=== PATIENT | female | born 2000 | race Caucasian/White ===

== ENCOUNTER 2022-11-24 20:00 | Emergency (ER) | payer OTHER, SELFPAY ==
--- NOTE | 2022-11-24 07:38 | ECG_ITS ---
Test Reason : PSSIBLE OD Blood Pressure : / mmHG Vent. Rate : 087 BPM Atrial Rate : 087 BPM P-R Int : 120 ms QRS Dur : 074 ms QT Int : 332 ms P-R-T Axes : -04 042 049 degrees QTc Int : 399 ms Normal sinus rhythm Normal ECG No previous ECGs available Referred By: Maci Victoria Electronically Signed By:RADHA METCALF MD
[2022-11-24 20:04] VITALS: BP 136/86; PULSE 87; RESP 11; O2SAT 100; BMI 25.7
[2022-11-24 20:10] VITALS: BP 136/86; PULSE 84; RESP 14; O2SAT 100
--- NOTE | 2022-11-24 20:10 | ED_ITS ---
HPI - Altered Mental Status General Chief Complaint: Altered Mental Status Stated Complaint: Fall/Head inj Time Seen by Provider: 11/24/22 20:09 Source: patient and family Mode of arrival: ambulatory History of Present Illness HPI narrative: 22-year-old female who was at a today was noted to pass out and has no underlying past medical history. Family brought her in their car due to concerns about her being unresponsive. Related Data Allergies Allergy/AdvReac Type Severity Reaction Status Date / Time shellfish derived Allergy Unknown RASH Unverified 03/04/20 18:12 [SHELLFISH DERIVED] SEAFOOD Allergy Severe RASH Uncoded 03/04/20 18:12 Review of Systems Review of Systems: Pertinent positives and negatives as stated in HPI PMFSH Past Medical History Source: nursing notes reviewed Social History Social History Alcohol intake: current Alcohol intake frequency: holidays/special occasions only Smoked in Last 30 Days: No Use of substances other than those prescribed or required for medical reasons: No Advance Directives: No Advance Directives Information Provided: Yes Physical Exam ED Vital Signs: Vital Signs - 24 hr 11/24/22 20:04 11/24/22 20:10 11/24/22 20:47 Pulse Rate 87 84 84 Respiratory Rate 11 L 14 17 Blood Pressure 136/86 136/86 127/81 Pulse Oximetry 100 100 100 Oxygen Delivery Method Room Air Nasal Cannula Room Air Oxygen Flow Rate 1 11/24/22 21:56 11/24/22 21:56 11/24/22 21:56 Pulse Rate 85 83 82 Respiratory Rate Blood Pressure 112/75 111/68 124/71 Pulse Oximetry Oxygen Delivery Method Oxygen Flow Rate 11/24/22 22:00 Pulse Rate 105 H Respiratory Rate 17 Blood Pressure 124/71 Pulse Oximetry 98 Oxygen Delivery Method Room Air Oxygen Flow Rate BMI result Body Mass Index 25.7 VITAL SIGNS: Reviewed. GENERAL: Well developed, well nourished, in no acute distress. HEAD: Normocephalic/atraumatic EYES: PERRLA, EOMI EARS: Ext canals without abnormality NOSE: Nares patent bilateral OROPHARYNX: no oral lesions noted, posterior pharynx clear NECK: Supple, no adenopathy LUNGS: Normal breath sounds. No adventitious sounds or accessory muscle use. SpO2<98> CARDIOVASCULAR: Regular rate and rhythm without noted murmurs ABDOMEN: Soft, non-tender, non-distended with bowel sounds. MUSCULOSKELETAL: No tenderness, deformities, or effusions noted on gross inspection. EXTREMITIES: No cyanosis, clubbing or edema. SKIN: Inspection of the skin reveals no rashes NEUROLOGIC: GCS-10 Medications Administered Discontinued Medications Generic Name Dose Route Start Last Admin Trade Name Freq PRN Reason Stop Dose Admin Sodium Chloride 1,000 mls @ 999 mls/hr 11/24/22 21:30 11/24/22 22:37 Ns IV 11/24/22 22:30 Infused .Q1H1M JORGE Infusion Medical Decision Making Medical Decision Making [facility] Narrative: 22-year-old female with history and clinical presentation after initial intervention with painful stimuli patient awakened with eyes open but was not speaking to anyone. I reviewed all investigations as well as results of orthostatics, toxicology my interpretation is this patient likely experienced a vasovagal syncopal episode. There are no neurologic deficits, the urinalysis appears consistent with patient's current menstrual state. Patient is otherwise discharged home in stable condition. Differential Diagnosis Please see the discussion above Lab Data Please see the discussion above 11/24/22 20:14 11/24/22 20:14 Labs: Lab Results 11/24/22 11/24/22 11/24/22 Range/Units 20:14 20:14 20:14 WBC 6.8 (4.8-10.8) X10*3/uL RBC 4.36 (4.20-5.50) X10*6/uL Hgb 12.5 (12.0-16.0) g/dl Hct 38.2 (37.0-47.0) % MCV 87.6 (80.0-98.0) fL MCH 28.7 (27.0-33.0) pg MCHC 32.7 (31.0-35.0) g/dl RDW 12.6 (11.0-16.0) % Plt Count 277 (160-400) X10*3/uL MPV 9.7 (9.4-12.3) fL Immature Gran % (Auto) 0.1 (0.0-0.4) % Neut % (Auto) 52.3 (45-73) % Lymph % (Auto) 39.6 (20-40) % [place] % (Auto) 5.7 (2-11) % Eos % (Auto) 1.9 (0-4) % Baso % (Auto) 0.4 (0-2) % Lymph # (Auto) 2.7 (1.2-4.9) X10*3/uL [place] # (Auto) 0.4 (0.1-1.2) X10*3/uL Eos # (Auto) 0.1 (0.0-0.4) X10*3/uL Baso # (Auto) 0.0 (0.0-0.2) X10*3/uL Abs Immat Gran (auto) 0.01 (0.00-0.03) X10*3/uL Absolute Neuts (auto) 3.6 (2.0-8.3) x10*3/uL Absolute Nucleated RBC 0.000 (0.0-0.012) X10*3/uL Nucleated RBC % (auto) 0.0 (0.0-0.2) /100WBC PT 11.8 (10.0-13.1) SEC INR 1.0 (0.9-1.1) Sodium 140 (135-145) mmol/L Potassium 4.0 (3.3-5.1) mmol/L Chloride 106 (96-108) mmol/L Carbon Dioxide 27 (22-29) mmol/L Anion Gap 11 L (12-20) BUN 8 L (9-16) mg/dL Creatinine 0.75 (0.5-1.4) mg/dL Estim Creat Clear Calc 119.8 Estimated GFR > 60 Random Glucose 81 (60-115) mg/dL Calcium 10.2 (8.4-10.2) mg/dL Total Bilirubin 0.3 (0.0-1.0) mg/dL AST 14 (5-31) U/L ALT 10 (0-31) U/L Alkaline Phosphatase 141 H (39-117) U/L Total Protein 7.1 (6.5-8.0) g/dL Albumin 4.6 (3.5-5.0) g/dL Urine Color Urine Appearance Urine pH (5.0-9.0) Ur Specific [place] (1.005-1.025) Urine Protein (Neg-Trace) mg/dL Urine Glucose (UA) (Negative) mg/dL Urine Ketones (Negative) mg/dL Urine Blood (Negative) Urine Nitrite (Negative) Ur Leukocyte Esterase (Negative) Urine RBC (0-2) /HPF Urine WBC (0-5) /HPF Ur Squamous Epith Cells (0-2) /HPF Urine Bacteria (None Seen) Hyaline Casts (0-2) /LPF Urine Opiates Screen (Not Detect) Urine Fentanyl Screen (Not Detect) Ur Barbiturates Screen (Not Detect) Ur Phencyclidine Scrn (Not Detect) Ur Amphetamines Screen (Not Detect) U Benzodiazepines Scrn (Not Detect) Urine Cocaine Screen (Not Detect) U Marijuana (THC) Screen (Not Detect) Ethyl Alcohol < 10 mg/dL 11/24/22 11/24/22 Range/Units 22:47 22:47 WBC (4.8-10.8) X10*3/uL RBC (4.20-5.50) X10*6/uL Hgb (12.0-16.0) g/dl Hct (37.0-47.0) % MCV (80.0-98.0) fL MCH (27.0-33.0) pg MCHC (31.0-35.0) g/dl RDW (11.0-16.0) % Plt Count (160-400) X10*3/uL MPV (9.4-12.3) fL Immature Gran % (Auto) (0.0-0.4) % Neut % (Auto) (45-73) % Lymph % (Auto) (20-40) % [place] % (Auto) (2-11) % Eos % (Auto) (0-4) % Baso % (Auto) (0-2) % Lymph # (Auto) (1.2-4.9) X10*3/uL [place] # (Auto) (0.1-1.2) X10*3/uL Eos # (Auto) (0.0-0.4) X10*3/uL Baso # (Auto) (0.0-0.2) X10*3/uL Abs Immat Gran (auto) (0.00-0.03) X10*3/uL Absolute Neuts (auto) (2.0-8.3) x10*3/uL Absolute Nucleated RBC (0.0-0.012) X10*3/uL Nucleated RBC % (auto) (0.0-0.2) /100WBC PT (10.0-13.1) SEC INR (0.9-1.1) Sodium (135-145) mmol/L Potassium (3.3-5.1) mmol/L Chloride (96-108) mmol/L Carbon Dioxide (22-29) mmol/L Anion Gap (12-20) BUN (9-16) mg/dL Creatinine (0.5-1.4) mg/dL Estim Creat Clear Calc Estimated GFR Random Glucose (60-115) mg/dL Calcium (8.4-10.2) mg/dL Total Bilirubin (0.0-1.0) mg/dL AST (5-31) U/L ALT (0-31) U/L Alkaline Phosphatase (39-117) U/L Total Protein (6.5-8.0) g/dL Albumin (3.5-5.0) g/dL Urine Color [place] A Urine Appearance Clear Urine pH 6.5 (5.0-9.0) Ur Specific [place] 1.015 (1.005-1.025) Urine Protein 30 (1+) H (Neg-Trace) mg/dL Urine Glucose (UA) Negative (Negative) mg/dL Urine Ketones Negative (Negative) mg/dL Urine Blood Large (3+) H (Negative) Urine Nitrite Negative (Negative) Ur Leukocyte Esterase Small (1+) H (Negative) Urine RBC 6-10 H (0-2) /HPF Urine WBC 11-20 H (0-5) /HPF Ur Squamous Epith Cells 11-20 (0-2) /HPF Urine Bacteria 1+ (None Seen) Hyaline Casts 0-2 (0-2) /LPF Urine Opiates Screen Not Detected (Not Detect) Urine Fentanyl Screen Not Detected (Not Detect) Ur Barbiturates Screen Not Detected (Not Detect) Ur Phencyclidine Scrn Not Detected (Not Detect) Ur Amphetamines Screen Not Detected (Not Detect) U Benzodiazepines Scrn Not Detected (Not Detect) Urine Cocaine Screen Not Detected (Not Detect) U Marijuana (THC) Screen Not Detected (Not Detect) Ethyl Alcohol mg/dL Independent Interpretation I performed an independent interpretation of an: EKG Interpretation: Normal sinus rhythm, HR-87, no STEMI, MS/QRS/QTC is within normal limits. External Record Review External record reviewed: Prior outpatient labs Discharge Plan Discharge Clinical Impression: Syncope, vasovagal Patient Disposition: Home, Self-Care Instructions: Syncope (ED) Additional Instructions: 1. Continue to drink plenty of fluids. 2. Follow-up with your primary care provider Sunday. Return to the ER for any worsening symptoms.
[2022-11-24 20:18] LABS: MANUAL DIFF FLAG NO
[2022-11-24 20:20] LABS: Basophils Percent Auto 0.4 % (0-2); Eosinophils Absolute Auto 0.1 X10*3/uL (0.0-0.4); Eosinophils Percent Auto 1.9 % (0-4); Hematocrit 38.2 % (37.0-47.0); Hemoglobin 12.5 g/dl (12.0-16.0); Imm Gran Abs Auto 0.01 X10*3/uL (0.00-0.03); Imm Gran Pct Auto 0.1 % (0.0-0.4); Lymphocytes Absolute Auto 2.7 X10*3/uL (1.2-4.9); Lymphocytes Percent Auto 39.6 % (20-40); Mean Corpuscular HGB Conc 32.7 g/dl (31.0-35.0); Mean Corpuscular Hemoglobin 28.7 pg (27.0-33.0); Mean Corpuscular Volume 87.6 fL (80.0-98.0); Mean Platelet Volume 9.7 fL (9.4-12.3); Monocytes Absolute Auto 0.4 X10*3/uL (0.1-1.2); Monocytes Percent Auto 5.7 % (2-11); Neutrophils Absolute Auto 3.6 x10*3/uL (2.0-8.3); Neutrophils Percent Auto 52.3 % (45-73); Platelet Count 277 X10*3/uL (160-400); Red Blood Count 4.36 X10*6/uL (4.20-5.50); Red Cell Distribution Width 12.6 % (11.0-16.0); White Blood Count 6.8 X10*3/uL (4.8-10.8)
[2022-11-24 20:26] LABS: Prothrombin Time 11.8 SEC (10.0-13.1)
[2022-11-24 20:44] LABS: Alanine Aminotransferase 10 U/L (0-31); Albumin Level 4.6 g/dL (3.5-5.0); Alkaline Phosphatase 141 U/L (39-117); Anion Gap 11 (12-20); Aspartate Amino Transferase 14 U/L (5-31); Bilirubin Total 0.3 mg/dL (0.0-1.0); Blood Urea Nitrogen 8 mg/dL (9-16); Calcium 10.2 mg/dL (8.4-10.2); Carbon Dioxide 27 mmol/L (22-29); Chloride 106 mmol/L (96-108); Creatinine Clr Calc Pharmacy 119.8; Estimated Glomerular Filt Rate > 60; Ethanol < 10 mg/dL; Glucose Random 81 mg/dL (60-115); Sodium 140 mmol/L (135-145); Total Protein 7.1 g/dL (6.5-8.0)
[2022-11-24 20:47] VITALS: BP 127/81; PULSE 84; RESP 17; O2SAT 100
--- NOTE | 2022-11-24 20:57 | PC.NURSE ---
late entry: pt brought back from waiting room, unresponsive, respirations even and unlabored, 80s normal sinus on monitor. 20g IV placed in LAC, labs obtained, EKG obtained. pt has eye movement but still is not responding verbally. Pt does withdraw from pain. Family member at bedside at this time
[2022-11-24] MEDS: 0.9 % Sodium Chloride 1,000 ML 999 ML IV (21:36)
[2022-11-24 21:56] VITALS: BP 111/68; BP 112/75; BP 124/71; PULSE 82; PULSE 83; PULSE 85
[2022-11-24 22:00] VITALS: BP 124/71; PULSE 105; RESP 17; O2SAT 98
--- NOTE | 2022-11-24 22:37 | PC.NURSE ---
pt awake, alert and oriented x4. Pt reports she fell and does not remember anything past that. MD Victoria aware
[2022-11-24 23:04] LABS: Amphetamine Screen Urine Not Detected (Not Detect); Barbiturates, Urine Not Detected (Not Detect); Benzodiazepines Screen Urine Not Detected (Not Detect); Cannabinoid Screen Urine Not Detected (Not Detect); Cocaine Screen Urine Not Detected (Not Detect); Fentanyl, urine Not Detected (Not Detect); Opiate Screen Urine Not Detected (Not Detect); Phencyclidine Screen Urine Not Detected (Not Detect)
[2022-11-24 23:09] LABS: Appearance Urine Clear; Color Urine Orange; Glucose Urine UA Negative (Negative); Leukocyte Esterase Urine Small (1+) (Negative); Nitrite Urine Negative (Negative); PH 6.5 (5.0-9.0); Specific Gravity - Urine 1.015 (1.005-1.025); UMIC TRIGGER UACC YES; Urine Blood Large (3+) (Negative); Urine Ketones Negative (Negative); Urine Protein 30 (1+) mg/dL (Neg-Trace)
[2022-11-24 23:10] LABS: Bacteria Urine 1+ (None Seen); Hyaline Casts Urine 0-2 /LPF (0-2); UACC Culture Trigger YES
[2022-11-25 00:02] LABS: HCG Quantitative < 2 mIU/mL
== END 2022-11-25 00:25 | disposition home or self-care (01) ==
PROVIDERS: Emergency Provider Student in an Organized Health Care Education/Training Program
DX: R55 Syncope and collapse (principal); R51.9 Headache, unspecified; Z79.899 Other long term (current) drug therapy
CPT/HCPCS: 36415; 80053; 80307; 81001; 81003; 84702; 85025; 85610; 87086; 87147; 93005; 96360; 99284

== ENCOUNTER 2024-09-15 14:49 | Emergency (ER) | payer OTHER, SELFPAY ==
--- NOTE | ~2024-09-15 | US_ITS ---
CLINICAL HISTORY: ovarian torsions? US pelvis, transabdominal and transvaginal, with Duplex Comparison: None available Findings: Anteverted uterus measures 7.2 cm long axis. Portions of the myometrium and endometrium are obscured by side lobe artifacts. Imaged endometrium measures 1.2 cm thickness. Multiple prominent vessels in the pelvis are nonspecific including of the margins of the imaged uterus. No significant free fluid in the imaged pelvis at this time. Right ovary measures 3.6 x 1.8 x 1.7 cm. Left ovary measures 2.9 x 2.1 x 1.5 cm. Doppler: Doppler arterial waveform of the right ovary demonstrates peak systolic velocity of 12 cm/sec and resistive index of 0.5, accounting for aliasing artifacts. Doppler arterial waveform of the left ovary demonstrates peak systolic velocity of 8 cm/sec and resistive index of 0.6, accounting for aliasing artifacts. IMPRESSION: 1. No ultrasound findings of ovarian torsion. 2. Imaged endometrium measures 1.2 cm thickness. This document has been electronically signed by: James Smith MD on 09/15/2024 19:50:03
[2024-09-15 15:22] VITALS: BP 127/50; PULSE 92; RESP 18; TEMP 37.1; O2SAT 99; BMI 25.2
--- NOTE | 2024-09-15 15:32 | ED_ITS ---
HPI - General Adult General Chief complaint: Vaginal Bleeding Stated complaint: Feels Sick Time Seen by Provider: 09/15/24 20:15 Source: patient Limitations: no limitations History of Present Illness ED Provider: Elizabeth Latif PA-C HPI narrative: 24-year-old female presents with multiple complaints. Patient states she has been feeling ?unwell?, for the past 4 days. Associated body aches including abdominal cramping low back pain and swollen breasts. Patient states she has had irregular bleeding over the past 4 days, she is not due for her menstrual cycle. The bleeding has stopped. She states she had a positive test. In addition she has nasal congestion, chills but no known fevers. No cough, nausea vomiting diarrhea. Related Data Allergies Allergy/AdvReac Type Severity Reaction Status Date / Time shellfish derived Allergy Unknown RASH Verified 09/15/24 15:25 [SHELLFISH DERIVED] SEAFOOD Allergy Severe RASH Uncoded 03/04/20 18:12 Review of Systems 2 Review of Systems: Yes all other systems are reviewed and are negative Constitutional: Constitutional: Reports chills, Reports fatigue, Denies fever(s) and Reports malaise ENT: Reports nasal congestion Cardiovascular: Cardiovascular: Denies chest pain and Denies dyspnea Respiratory: Respiratory: Denies cough and Denies dyspnea Gastrointestinal: Gastrointestinal: Reports abdominal pain, Denies diarrhea, Denies nausea and Denies vomiting Endocrine: Endocrine: Reports fatigue PMFSH Past Medical History Attestation statement: The following information was validated with the patient. Social History Social History Alcohol intake: never Smoked in Last 30 Days: No Use of substances other than those prescribed or required for medical reasons: No Advance Directives: No Advance Directives Information Provided: Yes Patient : Yes Physical Exam ED Vital Signs: Vital Signs - 24 hr 09/15/24 15:22 09/15/24 20:10 09/15/24 21:26 Temperature 98.7 F 98.4 F 98.2 F Pulse Rate 92 89 83 Respiratory Rate 18 16 16 Blood Pressure 127/50 L 133/70 125/63 Pulse Oximetry 99 100 99 Oxygen Delivery Method Room Air Room Air Room Air 09/15/24 22:12 Temperature 98.2 F Pulse Rate 83 Respiratory Rate 16 Blood Pressure 125/63 Pulse Oximetry 99 Oxygen Delivery Method Room Air BMI result Body Mass Index 25.2 Const Other: Alert Orientation/consciousness: patient oriented x3 HENMT Other: Nasal congestion Resp Effort & Inspection: normal respiratory effort Cardio Other: Normal peripheral perfusion Skin Other: Warm dry no rash Neuro General: patient oriented x3, gait normal, no focal motor deficits and CN's II- XI intact bilaterally Psych Other: Cooperative Course Course Course Narrative: RMTawnya; 24-year-old female presents to ED for 4 days of not feeling well. Patient states 09/10/2026 she had positive test and then started having vaginal bleeding with mucous discharge. Patient states bleeding. Benign have lower abdominal back pain slight dizziness. Patient states breast for swollen. 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 Patient states she has been feeling ?unwell?, for the past 4 days. Associated body aches including abdominal cramping low back pain and swollen breasts. Patient states she has had irregular bleeding over the past 4 days, she is not due for her menstrual cycle. The bleeding has stopped. She states she had a positive test. In addition she has nasal congestion, chills but no known fevers. No cough, nausea vomiting diarrhea. No chronic issues History: Per patient I have considered the following differential diagnoses: Irregular vaginal bleeding, ectopic, viral syndrome, ovarian cyst Plan: Patient here with generalized malaise, with nasal congestion she likely has a virus. We will add a viral panel. Other screening labs including a test and transvaginal ultrasound were ordered from triage, she is not , the ultrasound was unremarkable, it sounds as if this was her menstrual cycle, but she states it could not have been. The patient does not want to wait for her viral panel results I will call her at home. She has barriers to transportation, her ride is here. I have independently reviewed the following tests: Labs: No leukocytosis, not anemic, no electrolyte abnormality, not , viral panel negative Transvaginal ultrasound:IMPRESSION: 1. No ultrasound findings of ovarian torsion. 2. Imaged endometrium measures 1.2 cm thickness. Lab Data 09/15/24 15:34 09/15/24 15:34 Labs: Lab Results 09/15/24 09/15/24 Range/Units 15:34 21:25 WBC 6.5 (4.8-10.8) X10*3/uL RBC 4.21 (4.20-5.50) X10*6/uL Hgb 12.2 (12.0-16.0) g/dl Hct 37.3 (37.0-47.0) % MCV 88.6 (80.0-98.0) fL MCH 29.0 (27.0-33.0) pg MCHC 32.7 (31.0-35.0) g/dl RDW 12.3 (11.0-16.0) % Plt Count 296 (160-400) X10*3/uL MPV 9.2 L (9.4-12.3) fL Immature Gran % (Auto) 0.2 (0.0-0.4) % Neut % (Auto) 65.9 (45-73) % Lymph % (Auto) 26.2 (20-40) % [place] % (Auto) 5.4 (2-11) % Eos % (Auto) 1.8 (0-4) % Baso % (Auto) 0.5 (0-2) % Lymph # (Auto) 1.7 (1.2-4.9) X10*3/uL [place] # (Auto) 0.4 (0.1-1.2) X10*3/uL Eos # (Auto) 0.1 (0.0-0.4) X10*3/uL Baso # (Auto) 0.0 (0.0-0.2) X10*3/uL Abs Immat Gran (auto) 0.01 (0.00-0.03) X10*3/uL Absolute Neuts (auto) 4.3 (2.0-8.3) x10*3/uL Absolute Nucleated RBC 0.000 (0.0-0.012) X10*3/uL Nucleated RBC % (auto) 0.0 (0.0-0.2) /100WBC PT 10.9 (10.9-12.4) SEC INR 0.9 (0.9-1.1) APTT 34.8 (26.0-36.8) SEC Sodium 141 (135-145) mmol/L Potassium 3.9 (3.3-5.1) mmol/L Chloride 108 (96-108) mmol/L Carbon Dioxide 26 (22-29) mmol/L Anion Gap 11 L (12-20) BUN 8 L (9-16) mg/dL Creatinine 0.65 (0.5-1.4) mg/dL Estim Creat Clear Calc 125.2 Estimated GFR > 60 Random Glucose 86 (60-115) mg/dL Calcium 10.0 (8.4-10.2) mg/dL Total Bilirubin 0.3 (0.0-1.0) mg/dL AST 20 (5-31) U/L ALT 15 (0-31) U/L Alkaline Phosphatase 110 (39-117) U/L Total Protein 7.2 (6.5-8.0) g/dL Albumin 4.4 (3.5-5.0) g/dL Beta HCG, Quant < 2 mIU/mL Influenza Type A (PCR) NEGATIVE (Negative) Influenza Type B (PCR) NEGATIVE (Negative) RSV RNA Qual (PCR) NEGATIVE (Negative) SARS-CoV-2 RNA (RT-PCR) NEGATIVE (Negative) Blood Type O Positive Discharge Plan Discharge Clinical Impression: Acute viral syndrome, Vaginal bleeding Patient Disposition: Home, Self-Care Instructions: Viral Syndrome (ED) Additional Instructions: All of your screening labs were normal, you were not . The transvaginal ultrasound was normal of the uterus and ovaries. You have a viral panel pending, I will call you with the results. See home care instructions. If you do have a fever you can alternate between [id number] Tylenol and ibuprofen, for fever body ache and headache. Follow up with your primary care provider as needed. You should also follow up with your senior hadoop developer in regard to your irregular bleeding, it sounds as if you had breakthrough bleeding outside of your menstrual cycle. Stand Alone Forms: Work/School Release Interventions: ED Discharge Assessment Last Done: 09/15/24 22:12 Discharge Date/Time: 09/15/24 22:12 Print Language: Turkmen
[2024-09-15 15:38] LABS: MANUAL DIFF FLAG NO
[2024-09-15 15:39] LABS: Basophils Percent Auto 0.5 % (0-2); Eosinophils Absolute Auto 0.1 X10*3/uL (0.0-0.4); Eosinophils Percent Auto 1.8 % (0-4); Hematocrit 37.3 % (37.0-47.0); Hemoglobin 12.2 g/dl (12.0-16.0); Imm Gran Abs Auto 0.01 X10*3/uL (0.00-0.03); Imm Gran Pct Auto 0.2 % (0.0-0.4); Lymphocytes Absolute Auto 1.7 X10*3/uL (1.2-4.9); Lymphocytes Percent Auto 26.2 % (20-40); Mean Corpuscular HGB Conc 32.7 g/dl (31.0-35.0); Mean Corpuscular Volume 88.6 fL (80.0-98.0); Mean Platelet Volume 9.2 fL (9.4-12.3); Monocytes Absolute Auto 0.4 X10*3/uL (0.1-1.2); Monocytes Percent Auto 5.4 % (2-11); Neutrophils Absolute Auto 4.3 x10*3/uL (2.0-8.3); Neutrophils Percent Auto 65.9 % (45-73); Platelet Count 296 X10*3/uL (160-400); Red Blood Count 4.21 X10*6/uL (4.20-5.50); Red Cell Distribution Width 12.3 % (11.0-16.0); White Blood Count 6.5 X10*3/uL (4.8-10.8)
[2024-09-15 15:44] LABS: INTERNATIONAL NORM RATIO 0.9 (0.9-1.1); Prothrombin Time 10.9 SEC (10.9-12.4)
[2024-09-15 15:47] LABS: Partial Thromboplastin Time 34.8 SEC (26.0-36.8)
[2024-09-15 16:06] LABS: Alanine Aminotransferase 15 U/L (0-31); Albumin Level 4.4 g/dL (3.5-5.0); Anion Gap 11 (12-20); Aspartate Amino Transferase 20 U/L (5-31); Bilirubin Total 0.3 mg/dL (0.0-1.0); Blood Urea Nitrogen 8 mg/dL (9-16); Carbon Dioxide 26 mmol/L (22-29); Chloride 108 mmol/L (96-108); Creatinine Clr Calc Pharmacy 125.2; Estimated Glomerular Filt Rate > 60; Glucose Random 86 mg/dL (60-115); HCG Quantitative < 2 mIU/mL; Potassium 3.9 mmol/L (3.3-5.1); Sodium 141 mmol/L (135-145); Total Protein 7.2 g/dL (6.5-8.0)
[2024-09-15 16:18] LABS: Alkaline Phosphatase 110 U/L (39-117)
[2024-09-15 20:10] VITALS: BP 133/70; PULSE 89; RESP 16; TEMP 36.9; O2SAT 100
[2024-09-15 21:26] VITALS: BP 125/63; PULSE 83; RESP 16; TEMP 36.8; O2SAT 99
[2024-09-15 22:12] VITALS: BP 125/63; PULSE 83; RESP 16; TEMP 36.8; O2SAT 99
[2024-09-15 22:12] LABS: Influenza A PCR NEGATIVE (Negative); Influenza B PCR NEGATIVE (Negative); Resp Syncy Virus RNA Qual PCR NEGATIVE (Negative); SARS COV2 PCR INHOUSE NEGATIVE (Negative)
== END 2024-09-15 22:12 | disposition home or self-care (01) ==
PROVIDERS: Physician Assistant; Physician Assistant Medical; Emergency Provider Emergency Medicine
DX: B34.9 Viral infection, unspecified (principal); N93.9 Abnormal uterine and vaginal bleeding, unspecified; R53.81 Other malaise; R68.83 Chills (without fever); R42 Dizziness and giddiness; R10.2 Pelvic and perineal pain; M54.50 Low back pain, unspecified; Z03.818 Encounter for observation for suspected exposure to other biological agents ruled out; Z32.02 Encounter for pregnancy test, result negative; Z79.899 Other long term (current) drug therapy; N89.8 Other specified noninflammatory disorders of vagina
CPT/HCPCS: 0241U; 36415; 76830; 76856; 80053; 84702; 85025; 85610; 85730; 86900; 86901; 93975; 99284

== ENCOUNTER → 2024-09-15 18:57 | Outpatient (BNV) | payer OTHER, SELFPAY | PROVIDERS: Visit Provider Radiology Neuroradiology | DX: N85.00 Endometrial hyperplasia, unspecified (principal) | CPT/HCPCS: 76830; 76856 ==

== ENCOUNTER 2024-10-15 16:32 | Emergency (ER) | payer MEDICAID, SELFPAY ==
[2024-10-15 16:34] VITALS: BP 119/71; PULSE 85; RESP 18; TEMP 36.4; O2SAT 98; BMI 26.2
--- NOTE | 2024-10-15 16:39 | ED_ITS ---
HPI - General Adult General Chief complaint: General Medical Stated complaint: diarrhea Time Seen by Provider: 10/15/24 17:48 Source: patient Mode of arrival: ambulatory Limitations: no limitations History of Present Illness ED Provider: Dr. Faith Grullon HPI narrative: Patient comes to the emergency room complaining of hematuria and dysuria. Patient complaining of diffuse abdominal discomfort, mild lower back pain. One episode of diarrhea. Patient denies fever or chills. Patient denies nausea or vomiting. Related Data Previous Rx's ?Medication ?Instructions ?Recorded levofloxacin 500 mg tablet 500 mg PO DAILY #9 tabs 10/15/24 phenazopyridine 100 mg tablet 100 mg PO TID PRN pain 6 doses #6 10/15/24 tabs Allergies Allergy/AdvReac Type Severity Reaction Status Date / Time shellfish derived Allergy Unknown RASH Verified 10/15/24 16:36 [SHELLFISH DERIVED] SEAFOOD Allergy Severe RASH Uncoded 03/04/20 18:12 Review of Systems 2 Review of Systems: Constitutional : No Weight loss, No Fever, No Chills, No Night Sweats, No Fatigue, No Malaise ENT/Mouth : No Hearing loss, No Ear Pain, No Nasal Congestion, No Sinus Pain, No Hoarseness, No sore throat, No Rhinorrhea, No Swallowing Difficulty Eyes: No Eye Pain, No Swelling, No Redness, No Foreign Body, No Discharge, No Vision Changes Cardiovascular : No Chest Pain, No SOB, No Dyspnea on Exertion, No Orthopnea, No Edema, No Palpitations Respiratory : No Cough, No Sputum, No Wheezing, No Smoke Exposure, No Dyspnea Gastrointestinal : No Nausea, No Vomiting, complaining of 1 episode of diarrhea, mild suprapubic discomfort Genitourinary : no irregular bleeding, complaining of hematuria dysuria and frequency, No Urinary Incontinence, No Urgency, No Flank Pain, No Urinary Flow Changes, No Hesitancy Musculoskeletal : No joint pain, No Myalgias, No Joint Swelling Skin : No Skin Lesions, No rash Neuro : No Weakness, No Numbness, No Paresthesias, No Loss of Consciousness, No Dizziness, No Headache Psych : No Anxiety/Panic, No Depression, No SI/HI/AH/VH, No Social Issues, Heme/Lymph: No Bruising, No Bleeding,No Lymphadenopathy Endocrine : No Polyuria, No Polydipsia, No Temperature Intolerance PMFSH Social History Social History Alcohol intake: never Advance Directives: No Advance Directives Information Provided: Yes Physical Exam ED Vital Signs: Vital Signs - 24 hr 10/15/24 16:34 Temperature 97.6 F Pulse Rate 85 Respiratory Rate 18 Blood Pressure 119/71 Pulse Oximetry 98 Oxygen Delivery Method Room Air BMI result Body Mass Index 26.2 Const Other: Appearance: Alert. Oriented X3. No acute distress. Eyes: Pupils equal, round and reactive to light. ENT: Pharynx normal. Neck: Normal inspection. Neck supple. No lymph nodes noted. No crepitus CVS: Normal heart rate and rhythm. Pulses normal. Normal S1 and S2 Respiratory: No respiratory distress. Breath sounds normal. No Wheezing. No rales Abdomen: Soft and nontender. No rigidity. No distention. Back: Mild bilateral pain to palpation, no significant CVA tenderness. Skin: Skin warm and dry. Normal skin color. Normal skin turgor. Extremities: No lower extremity edema. No Lacerations. No Rash Neuro: Oriented X 3. No motor deficit. No sensory deficit. Moving all extremities. No slurred speech. CN 2 through 12 grossly intact Psych: calm, cooperative, normal affect Course Course Course Narrative: This is a Rapid Medical Examination (RME) performed by Damien Potter PA-C in triage. Full HPI, ROS, assessment and treatment plan per primary provider in the Main ED. 10/15/24 1640 SAURAV Farias Hx: 24 yo female here for eval of urinary discomfort and blood on toilet paper after voiding. admits to assoc nausea, AGUILAR, and diffuse abd pain. reports diarrhea that began yesterday. no obvious hematuria. LMP 1 wk ago. currently sexually active. had unprotected intercourse with partner approx 1 week prior to symptoms. PE/vitals: well appearing. Plan: labs, UA, hcg, ct/ng Medications Administered Discontinued Medications Generic Name Dose Route Start Last Admin Trade Name Freq PRN Reason Stop Dose Admin Levofloxacin 500 mg 10/15/24 18:15 10/15/24 18:21 Levofloxacin 500 Mg Tablet PO 10/15/24 18:16 500 mg ONCE ONE Administration Phenazopyridine HCl 100 mg 10/15/24 18:12 10/15/24 18:18 Phenazopyridine Hcl 100 Mg Tablet PO 10/15/24 18:13 100 mg ONCE ONE Administration Medical Decision Making Medical Decision Making [facility] Narrative: My interpretation of labs: Normal hematology, no significant abnormality and chemistry, urinalysis positive for UTI, negative for . Patient's vitals are completely normal. Clinically, patient has pyelonephritis, sepsis is not suspected. Patient was given phenazopyridine and levofloxacin in the emergency room Differential Diagnosis Differential Diagnoses: The differential diagnosis associated with the presentation includes (UTI, pyelonephritis, miscarriage) Admission/Observation Consideration of admission/observation: Escalation of care including admission/observation considered (Given patient's labs and symptoms, observation was considered.) Lab Data [facility] Lab Attestation statement: I reviewed the patient's lab results. 10/15/24 17:00 10/15/24 17:00 Labs: Lab Results 10/15/24 10/15/24 Range/Units 17:00 17:01 WBC 10.0 (4.8-10.8) X10*3/uL RBC 4.15 L (4.20-5.50) X10*6/uL Hgb 12.3 (12.0-16.0) g/dl Hct 36.5 L (37.0-47.0) % MCV 88.0 (80.0-98.0) fL MCH 29.6 (27.0-33.0) pg MCHC 33.7 (31.0-35.0) g/dl RDW 13.0 (11.0-16.0) % Plt Count 276 (160-400) X10*3/uL MPV 9.4 (9.4-12.3) fL Immature Gran % (Auto) 0.4 (0.0-0.4) % Neut % (Auto) 75.5 H (45-73) % Lymph % (Auto) 18.6 L (20-40) % [place] % (Auto) 3.9 (2-11) % Eos % (Auto) 1.3 (0-4) % Baso % (Auto) 0.3 (0-2) % Lymph # (Auto) 1.9 (1.2-4.9) X10*3/uL [place] # (Auto) 0.4 (0.1-1.2) X10*3/uL Eos # (Auto) 0.1 (0.0-0.4) X10*3/uL Baso # (Auto) 0.0 (0.0-0.2) X10*3/uL Abs Immat Gran (auto) 0.04 H (0.00-0.03) X10*3/uL Absolute Neuts (auto) 7.6 (2.0-8.3) x10*3/uL Absolute Nucleated RBC 0.000 (0.0-0.012) X10*3/uL Nucleated RBC % (auto) 0.0 (0.0-0.2) /100WBC Sodium 140 (135-145) mmol/L Potassium 3.6 (3.3-5.1) mmol/L Chloride 105 (96-108) mmol/L Carbon Dioxide 27 (22-29) mmol/L Anion Gap 12 (12-20) BUN 9 (9-16) mg/dL Creatinine 0.72 (0.5-1.4) mg/dL Estim Creat Clear Calc 115.1 Estimated GFR > 60 Random Glucose 131 H (60-115) mg/dL Calcium 9.7 (8.4-10.2) mg/dL Magnesium 1.8 (1.6-2.6) mg/dL Total Bilirubin 0.4 (0.0-1.0) mg/dL AST 17 (5-31) U/L ALT 12 (0-31) U/L Alkaline Phosphatase 115 (39-117) U/L Total Protein 7.0 (6.5-8.0) g/dL Albumin 4.4 (3.5-5.0) g/dL Urine Color Yellow Urine Appearance Cloudy Urine pH 6.5 (5.0-9.0) Ur Specific [place] 1.020 (1.005-1.025) Urine Protein 30 (1+) H (Neg-Trace) mg/dL Urine Glucose (UA) Negative (Negative) mg/dL Urine Ketones Negative (Negative) mg/dL Urine Blood Moderate (2+) H (Negative) Urine Nitrite Negative (Negative) Ur Leukocyte Esterase Large (3+) H (Negative) Urine RBC >20 H (0-2) /HPF Urine WBC >50 H (0-5) /HPF Ur Squamous Epith Cells 3-5 (0-2) /HPF Urine Bacteria 1+ (None Seen) Hyaline Casts 0-2 (0-2) /LPF Urine Test NEGATIVE (NEGATIVE) Influenza Type A (PCR) NEGATIVE (Negative) Influenza Type B (PCR) NEGATIVE (Negative) RSV RNA Qual (PCR) NEGATIVE (Negative) SARS-CoV-2 RNA (RT-PCR) NEGATIVE (Negative) Discharge Plan Discharge Clinical Impression: Pyelonephritis Patient Disposition: Home, Self-Care Instructions: Kidney Infection (ED) Additional Instructions: Please follow-up with your primary care physician tomorrow. If you have any worsening or new symptoms, please return to the emergency room or call 911 Prescriptions: New levofloxacin 500 mg tablet 500 mg PO DAILY Qty: 9 0RF phenazopyridine 100 mg tablet 100 mg PO TID PRN (Reason: pain) Qty: 6 0RF Print Language: Pashto
[2024-10-15 17:06] LABS: MANUAL DIFF FLAG NO
[2024-10-15 17:08] LABS: Basophils Percent Auto 0.3 % (0-2); Eosinophils Absolute Auto 0.1 X10*3/uL (0.0-0.4); Eosinophils Percent Auto 1.3 % (0-4); Hematocrit 36.5 % (37.0-47.0); Hemoglobin 12.3 g/dl (12.0-16.0); Imm Gran Abs Auto 0.04 X10*3/uL (0.00-0.03); Imm Gran Pct Auto 0.4 % (0.0-0.4); Lymphocytes Absolute Auto 1.9 X10*3/uL (1.2-4.9); Lymphocytes Percent Auto 18.6 % (20-40); Mean Corpuscular HGB Conc 33.7 g/dl (31.0-35.0); Mean Corpuscular Hemoglobin 29.6 pg (27.0-33.0); Mean Platelet Volume 9.4 fL (9.4-12.3); Monocytes Absolute Auto 0.4 X10*3/uL (0.1-1.2); Monocytes Percent Auto 3.9 % (2-11); Neutrophils Absolute Auto 7.6 x10*3/uL (2.0-8.3); Neutrophils Percent Auto 75.5 % (45-73); Platelet Count 276 X10*3/uL (160-400); Red Blood Count 4.15 X10*6/uL (4.20-5.50)
[2024-10-15 17:10] LABS: Appearance Urine Cloudy; Color Urine Yellow; Glucose Urine UA Negative (Negative); Leukocyte Esterase Urine Large (3+) (Negative); Nitrite Urine Negative (Negative); PH 6.5 (5.0-9.0); UMIC TRIGGER UACC YES; Urine Blood Moderate (2+) (Negative); Urine Ketones Negative (Negative); Urine Protein 30 (1+) mg/dL (Neg-Trace)
[2024-10-15 17:11] LABS: UPreg QC Valid YES; Urine Pregnancy NEGATIVE (NEGATIVE)
[2024-10-15 17:21] LABS: Alanine Aminotransferase 12 U/L (0-31); Albumin Level 4.4 g/dL (3.5-5.0); Alkaline Phosphatase 115 U/L (39-117); Anion Gap 12 (12-20); Aspartate Amino Transferase 17 U/L (5-31); Bacteria Urine 1+ (None Seen); Bilirubin Total 0.4 mg/dL (0.0-1.0); Blood Urea Nitrogen 9 mg/dL (9-16); Calcium 9.7 mg/dL (8.4-10.2); Carbon Dioxide 27 mmol/L (22-29); Chloride 105 mmol/L (96-108); Creatinine Clr Calc Pharmacy 115.1; Estimated Glomerular Filt Rate > 60; Glucose Random 131 mg/dL (60-115); Hyaline Casts Urine 0-2 /LPF (0-2); Magnesium 1.8 mg/dL (1.6-2.6); Potassium 3.6 mmol/L (3.3-5.1); RBC Urine >20 /HPF (0-2); Sodium 140 mmol/L (135-145); UACC Culture Trigger YES; WBC Urine >50 /HPF (0-5)
[2024-10-15 17:48] LABS: Influenza A PCR NEGATIVE (Negative); Influenza B PCR NEGATIVE (Negative); Resp Syncy Virus RNA Qual PCR NEGATIVE (Negative); SARS COV2 PCR INHOUSE NEGATIVE (Negative)
[2024-10-15] MEDS: Phenazopyridine HCL 100 MG TABLET PO (18:18)
[2024-10-15] MEDS: levoFLOXacin 500 MG TABLET PO (18:21)
[2024-10-15 18:31] VITALS: BP 119/71; PULSE 85; RESP 18; TEMP 36.4; O2SAT 98
[2024-10-15 18:39] LABS: CT PCR NOT DETECTED (Not Detect.); NG PCR NOT DETECTED (Not Detect.)
== END 2024-10-15 18:34 | disposition home or self-care (01) ==
PROVIDERS: Physician Assistant Medical; Emergency Provider Emergency Medicine
DX: N12 Tubulo-interstitial nephritis, not specified as acute or chronic (principal); B96.20 Unspecified Escherichia coli [E. coli] as the cause of diseases classified elsewhere; R10.30 Lower abdominal pain, unspecified; Z03.818 Encounter for observation for suspected exposure to other biological agents ruled out
CPT/HCPCS: 0241U; 36415; 80053; 81001; 81025; 83735; 85025; 87086; 87088; 87186; 87491; 87591; 99283

== ENCOUNTER 2024-12-10 16:10 | Outpatient (REF) | payer MEDICAID, SELFPAY ==
--- OUTSIDE RECORDS SUMMARY | 2023-09-25 07:40 | XMS_ITS ---
Author Organization [email or web address] [facility] Address [address] [facility] [address] [place], [place] [phone] Care Team Providers Care Business Excellence Leader Name Role Phone Tamara Darby Primary Care Provider REASON FOR VISIT possible Encounters Encounter Location Date Provider Diagnosis [facility] [address] [facility] [address] [place], [place] [phone] 09/25/2023 Tamara Darby Plan Of Treatment No Information Progress Notes * Ciarra FAROOQ ADOB:1 06/30/1999 (24 yo F)Acc No.[id number]:09/25/2023 Progress Note Patient: [place] FINK jEdolores Cool Provider: MANJU Butler :2000 A ge:23 Y S ex:Female Date:09/25/2023 Address:[address] [place], [place] [id number] Subjective: * Chief Complaints: * 1 . Possible . * Medical History: Objective: * Vitals: Assessment: Plan: * Treatment: Care Plan: * Problems: * Images: Billing Information: * Visit Code: * Procedure Codes: Care Plan Details* * Electronic signature of Nolvia Darby NP on 12/10/2024 at 06:43 PM EDT Sign off status: Pending * Provider: MANJU Butler Date: 0 09/25/2023 Generated for Printi ng/Faxing/eTransmitting on: 0 12/10/2024 06:43 PM EDT
[2024-12-10 18:14] LABS: Appearance Urine Turbid; Color Urine Yellow; Glucose Urine UA Negative (Negative); Leukocyte Esterase Urine Negative (Negative); Nitrite Urine Negative (Negative); Specific Gravity - Urine 1.025 (1.005-1.025); Urine Blood Negative (Negative); Urine Ketones Trace mg/dL (Negative); Urine Protein Trace mg/dL (Neg-Trace)
[2024-12-10 18:29] LABS: Bacteria Urine 4+ (None Seen); Hyaline Casts Urine 0-2 /LPF (0-2); RBC Urine 0-2 /HPF (0-2); WBC Urine 0-5 /HPF (0-5)
[2024-12-10 18:38] LABS: HCG Quantitative < 2 mIU/mL
[2024-12-10 20:25] LABS: Bacterial Vaginosis PCR POSITIVE (Negative); Candida Group PCR DETECTED (Not Detect); Candida glab krusei PCR NOT DETECTED (Not Detect); Trichomonas vaginalis PCR NOT DETECTED (Not Detect)
[2024-12-10 21:54] LABS: CT PCR DETECTED (Not Detect.); NG PCR NOT DETECTED (Not Detect.)
[2024-12-11 07:59] LABS: HIV AB/AG Nonreactive (Nonreactive); HIV Num 1 0.05 S/CO (0.00-0.99); ~HepC Num1 0.17 S/CO (0.00-0.79); ~Hepatitis C Antibody Nonreactive (Nonreactive)
[2024-12-11 08:32] LABS: Syphilis Screen Nonreactive (Nonreactive)
== END 2024-12-10 16:11 | disposition home or self-care (01) ==
LOC: HO.HHCL 16:10
PROVIDERS: PCP Family Medicine; Visit Provider Family Medicine
DX: Z30.09 Encounter for other general counseling and advice on contraception (principal); N89.8 Other specified noninflammatory disorders of vagina; Z11.3 Encounter for screening for infections with a predominantly sexual mode of transmission
CPT/HCPCS: 36415; 81001; 81515; 84702; 86780; 86803; 87086; 87389; 87491; 87591

== ENCOUNTER 2025-01-13 11:18 | Outpatient (REF) | payer MEDICAID, SELFPAY ==
--- OUTSIDE RECORDS SUMMARY | 2023-09-25 07:40 | XMS_ITS ---
Author Organization [facility] Address [address] [facility] [address] [place], [place] [id number] Care Team Providers Care Window Cutter Name Role Phone Tamara Darby Primary Care Provider REASON FOR VISIT possible Encounters Encounter Location Date Provider Diagnosis [facility] [address] [facility] [address] [place], [place] [id number] 09/25/2023 Tamara Darby Plan Of Treatment No Information Progress Notes * Ciarra FAROOQ ADOB:1 06/30/1999 (24 yo F)Acc No.[id number]:09/25/2023 Progress Note Patient: [place] FINK Ejdolores Cool Provider: MANJU Butler :2000 A ge:23 Y S ex:Female Date:09/25/2023 Address:[address] [place], [place] [id number] Subjective: * Chief Complaints: * 1 . Possible . * Medical History: Objective: * Vitals: Assessment: Plan: * Treatment: Care Plan: * Problems: * Images: Billing Information: * Visit Code: * Procedure Codes: Care Plan Details* * Electronic signature of Nolvia Darby NP on 01/13/2025 at 12:31 PM EDT Sign off status: Pending * Provider: MANJU Butler Date: 09/25/2023 Generated for Printi ng/Faxing/eTransmitting on: 0 01/13/2025 12:31 PM EDT
--- OUTSIDE RECORDS SUMMARY | 2025-01-13 12:31 | XMS_ITS | Data Portability ---
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 Plan of Treatment Reminders Order Date Submit Date Provider Last Modified By Organization Details Last Modified Time Details Appointments None recorded. Lab urinalysis, dipstick 2023 024 [facility]13 [address] [address], [address] [place], [address], 4 14:36:45 test, urine 2023 024 [email or web address] [address] [address], [address] [place], [address], 4 14:36:44 SARS CoV 2 (COVID-19) Ag, QL, IA, upper respiratory specimen 2023 024 [email or web address] [address] [address] [address] [place], [address], 4 14:36:41 rapid flu (A+B) 2023 024 [email or web address] [address] [address], [address] [place], [address], 4 14:36:42 SARS CoV 2 (COVID-19) Ag, QL, IA, upper respiratory specimen 2023 024 [email or web address] [address] [address], [address] [place], [address], 4 13:37:18 rapid flu (A+B) 2023 024 [email or web address] [address] [address], [address] [place], [address], 4 12:54:14 SARS CoV 2 (COVID-19) Ag, QL, IA, upper respiratory specimen 2023 024 [email or web address] [address] [address], [address] [place], [address], 4 12:54:12 Referral None recorded. Procedures None recorded. Surgeries None recorded. Imaging None recorded. Medication Orders erythromyci n 5 mg/gram (0.5 %) eye ointment 2023 024 [facility]/Pharmacy #3508, [address] [place], [address], 4 19:45:43 Bromfed DM 2 mg-30 mg-10 mg/5 mL oral syrup 2023 024 [facility]/Pharmacy #3508, [address] [place], [address], 4 19:11:42 promethazin e-DM 6.25 mg-15 mg/5 mL oral syrup [address]/Pharmacy #3508, [address] [place], [address], 12:56:13 fluticasone propionate 50 mcg/actuati on nasal spray,suspe nsion 2023 024 [address], [address] [place], [address], 12:55:13 Polytrim 10,000 unit-1 mg/mL eye drops [address]/Pharmacy #3508, [address] [place], [address], 12:33:38 Patient TargetsNo targets recorded. Patient Instructions Encounter Date Encounter Id Patient Instructions Last Modified By Organization Details Last Modified Time 05/26/2023 [id number] Increase fluids Take Tylenol/Ibuprofen as needed to aches or fevers Follow up with your primary care provider in 3-4 days Return to [facility] in 3-4 days as needed You should go to the Emergency Department for any new or worsening symptoms Not available 05/26/2023 15:44:50 07/27/2023 [id number] - Increase fluid intake and obtain plenty of rest. - Discussed OTC cough medications for URI symptom and cough management. - Use saline nasal spray or neti-pot flushes once to twice a day to loosen mucus in sinuses. Use a cool mist humidifier in the room that you sleep to add moisture to the air, which should soothe the airways and help loosen any mucus that may be present. - Recommend recheck if fever develops or no improvement in 5-7 days. - if no resolution or improvement within 2 weeks recheck at [facility] or PCP - Advised to dial 911 or seek emergency medical attention immediately for any worsening symptoms. -All questions answered during discharge. [email or web address] Not available 07/27/2023 12:53:27 11/19/2023 [id number] Increase fluids May use salt water gargles Take Tylenol/Ibuprofen as needed to aches or fevers Follow up with your primary care provider in 3-4 days Return to [facility] in 3-4 days as needed You should go to the Emergency Department for any new or worsening symptoms Not available 11/19/2023 13:34:09 03/14/2024 [id number] Increase fluids May use salt water gargles Take Tylenol/Ibuprofen as needed to aches or fevers Follow up with your primary care provider in 3-4 days Return to [facility] in 3-4 days as needed You should go to the Emergency Department for any new or worsening symptoms Not available 03/14/2024 14:35:47 03/24/2024 [id number] Increase fluids Take Tylenol/Ibuprofen as needed to aches or fevers Follow up with your primary care provider in 3-4 days Return to [facility] in 3-4 days as needed You should go to the Emergency Department for any new or worsening symptoms Not available 03/24/2024 19:45:41 Reason for Referral None Reported. Results Created Date Observation Date Name Description Value Unit Range Abnormal Flag Note LastModifiedBy Organization Detail LastModifiedTime 07/27/19 24 07/27/2023 SARS CoV 2 (COVI D-19) Ag, QL, IA, upper respi rator y speci men Unknown Analyte negati ve Not Available [address] [address] [place], [address], 07/27/2023 12:45:44 07/27/19 24 07/27/2023 rapid flu (A+B) Unknown Analyte negati ve Not Available [address] [address] [place], [address], 07/27/2023 12:45:35 07/27/19 24 07/27/2023 rapid flu (A+B) Unknown Analyte negati ve Not Available [address] [address] [place], [address], 07/27/2023 12:45:35 11/19/19 24 11/19/2023 SARS CoV 2 (COVI D-19) Ag, QL, IA, upper respi rator y speci men Unknown Analyte negati ve Not Available [facility] [address] [place], [address], 11/19/2023 13:12:06 03/14/20 24 03/14/2024 pregn shine test, urine Unknown Analyte negati ve Not Available [address] [place], [place] [address]d [address] [place], [address], 03/14/2024 14:07:49 03/14/20 24 03/14/2024 rapid flu (A+B) Unknown Analyte negati ve Not Available [address] [place], [place] [address] [address] [place], [address], 03/14/2024 14:07:16 03/14/20 24 03/14/2024 rapid flu (A+B) Unknown Analyte negati ve Not Available [address] [place], [place] [address] [address] [place], [address], 03/14/2024 14:07:16 03/14/20 24 03/14/2024 SARS CoV 2 (COVI D-19) Ag, QL, IA, upper respi rator y speci men Unknown Analyte negati ve Not Available [address] [place], [place] [address] [address] [place], [address], 03/14/2024 14:06:55 03/14/20 24 03/14/2024 urina lysis , dipst ick Unknown Analyte Normal = light yellow Not Available [address] [place] [address] [facility] [place], [address], 03/14/2024 14:07:32 03/14/20 24 03/14/2024 urina lysis , dipst ick Unknown Analyte Normal = clear Not Available [facility] [address] [place], [address], 03/14/2024 14:07:32 03/14/20 24 03/14/2024 urina lysis , dipst ick Unknown Analyte Normal = negati ve Not Available [facility] [address] [place], [address], 03/14/2024 14:07:32 03/14/2003/14/2024 urina lysis , dipst ick Unknown Analyte Normal = Negati ve Not Available [facility], [address], 03/14/2024 14:07:32 03/14/20 24 03/14/2024 urina lysis , dipst ick Unknown Analyte Normal = Negati ve Not Available [facility], [address], 03/14/2024 14:07:32 03/14/20 24 03/14/2024 urina lysis , dipst ick Unknown Analyte Normal = 1.010, 1.015, 1.020 Not Available [facility], [address], 03/14/2024 14:07:32 03/14/20 24 03/14/2024 urina lysis , dipst ick Unknown Analyte Normal = Negati ve Not Available [facility], [address], 03/14/2024 14:07:32 03/14/20 24 03/14/2024 urina lysis , dipst ick Unknown Analyte Normal = 6.5, 7.0, 7.5, 8.0 Not Available [facility] [address] [place], [address], 03/14/2024 14:07:32 03/14/20 24 03/14/2024 urina lysis , dipst ick Unknown Analyte Normal = Negati ve Not Available [facility] [address] [place], [address], 03/14/2024 14:07:32 03/14/20 24 03/14/2024 urina lysis , dipst ick Unknown Analyte Normal = 0.2, 1.0 Not Available [facility] [address] [place], [address], 03/14/2024 14:07:32 03/14/20 24 03/14/2024 urina lysis , dipst ick Unknown Analyte Normal = Negati ve Not Available [facility] [address] [place], [address], 03/14/2024 14:07:32 03/14/20 24 03/14/2024 urina lysis , dipst ick Unknown Analyte Normal = Negati ve Not Available [facility], [address], 03/14/2024 14:07:32 03/14/20 24 03/14/2024 urina lysis , dipst ick Unknown Analyte Dark Yellow Not Available [facility], [address], 03/14/2024 14:07:32 03/14/20 24 03/14/2024 urina lysis , dipst ick Unknown Analyte Clear Not Available [address] [facility] [address] [place], [address], 03/14/2024 14:07:32 03/14/20 24 03/14/2024 urina lysis , dipst ick Unknown Analyte Negati ve Not Available [address] [facility] [address] [place], [address], 03/14/2024 14:07:32 03/14/20 24 03/14/2024 urina lysis , dipst ick Unknown Analyte Small Not Available [address] [place] [address], [address], 03/14/2024 14:07:32 03/14/20 24 03/14/2024 urina lysis , dipst ick Unknown Analyte >=160 mg/dL Not Available [address] [facility] [address] [place], [address], 03/14/2024 14:07:32 03/14/20 24 03/14/2024 urina lysis , dipst ick Unknown Analyte 1.030 Not Available [address] [place] [address], [address], 03/14/2024 14:07:32 03/14/20 24 03/14/2024 urina lysis , dipst ick Unknown Analyte Negati ve Not Available [address], [address], 03/14/2024 14:07:32 03/14/20 24 03/14/2024 urina lysis , dipst ick Unknown Analyte 5.5 Not Available [address] [place] [address] [address] [place], [address], 03/14/2024 14:07:32 03/14/20 24 03/14/2024 urina lysis , dipst ick Unknown Analyte Negati ve Not Available [address] [address] [place], [address], 03/14/2024 14:07:32 03/14/20 24 03/14/2024 urina lysis , dipst ick Unknown Analyte 1.0 E.U./d L Not Available [facility] [address] [place], [address], 03/14/2024 14:07:32 03/14/20 24 03/14/2024 urina lysis , dipst ick Unknown Analyte Negati ve Not Available [address] [place] [address] [address] [place], [address], 03/14/2024 14:07:32 03/14/20 24 03/14/2024 urina lysis , dipst ick Unknown Analyte Negati ve Not Available [address] [place] [address] [address] [place], [address], 03/14/2024 14:07:32 Result Notes None recorded. Problems No Known Problems Procedures Surgical History Date Name Laterality Status Provider Name and Address Organization Details Recorded Time OC-UDS Send Out Template NON DOT completed Lluvia MG - [facility] 09/04/2022 11:08:48 Imaging Results None recorded. Procedure Notes None recorded. Medical Equipment None Reported. Allergies No known drug allergies Medications Name Sig Start Date Stop Date Status Note LastModified by Organization Details LastModified Time fluconazole 100 mg tablet TAKE 1 TABLET ORAL ROUTE ONCE DAILY FOR 5 DAYS 11/18 completed Not Available Not Available Not Available methocarbam ol 500 mg tablet TAKE 1 TABLET FOUR TIMES DAILY NEEDED BY MOUTH FOR PAIN. 11/18 completed Not Available Not Available Not Available buspirone 5 mg tablet TAKE 1 TABLET BY MOUTH TWICE A DAY FOR 30 DAYS 01/27 completed Not Available Not Available Not Available Bromfed DM 2 mg-30 mg-10 mg/5 mL oral syrup Take 10 mL 3 times a day by oral route as needed. 03/24 completed Not Available Not Available Not Available promethazin e-DM 6.25 mg-15 mg/5 mL oral syrup TAKE 5 ML EVERY 8 HOURS BY ORAL ROUTE FOR 7 DAYS. 11/18 completed Not Available Not Available Not Available Delsym 12 hour 30 mg/5 mL oral suspension, extended release Take 5 mL twice a day by oral route for 10 days. 05/26 completed Not Available Not Available Not Available cetirizine 10 mg tablet CHEW 1 TABLET 1 TIME PER DAY FOR ALLERGY SYMPTOMS OR ITCHING 06/26 completed Not Available Not Available Not Available ibuprofen 800 mg tablet TAKE 1 TABLET BY MOUTH EVERY 8 HOURS NEEDED 05/26 completed Not Available Not Available Not Available promethazin e 12.5 mg tablet TAKE 1 TABLET ORAL ROUTE EVERY 8 HOURS NEEDED 11/18 completed Not Available Not Available Not Available phenazopyri dine 200 mg tablet 11/18 completed Not Available Not Available Not Available ondansetron HCl 4 mg tablet 1 TAB(S) ORALLY EVERY 8 HOURS 5 DAY(S) 01/27 completed Not Available Not Available Not Available prednisone 20 mg tablet TAKE 1 TABLET BY MOUTH ROUTE ONCE DAILY FOR 5 DAYS 11/18 completed Not Available Not Available Not Available penicillin V potassium 500 mg tablet 1 TAB(S) ORALLY EVERY 6 HOURS 10 DAY(S) 05/26 completed Not Available Not Available Not Available metronidazo le 500 mg tablet TAKE 1 TABLET ORAL ROUTE EVERY 8 HOURS FOR 10 DAYS 11/18 completed Not Available Not Available Not Available sulfamethox azole 800 mg-trimetho prim 160 mg tablet TAKE 1 TABLET BY MOUTH EVERY 12 HOURS FOR 10 DAYS 06/26 completed Not Available Not Available Not Available tramadol 50 mg tablet 11/18 completed Not Available Not Available Not Available amoxicillin 875 mg tablet TAKE 1 TABLET BY MOUTH EVERY 12 HOURS FOR 7 DAYS 06/26 completed Not Available Not Available Not Available IBU 600 mg tablet Take 1 tablet 3 times a day by oral route as needed for 10 days. 09/20 completed Not Available Not Available Not Available cephalexin 500 mg capsule TAKE 1 CAPSULE ORAL ROUTE EVERY 6 HOURS FOR 5 DAYS 11/18 completed Not Available Not Available Not Available erythromyci n 5 mg/gram (0.5 %) eye ointment APPLY 1 CM RIBBON INTO THE LOWER CONJUNCTI YULIET SAC(S) IN THE AFFECTED EYE(S) BY OPHTHALMI C ROUTE 3 TIMES PER DAY 2023 active Not Available Not Available Not Avai lable polymyxin B sulfate 10,000 unit-trimet hoprim 1 mg/mL eye drops INSTILL 1 DROP INTO AFFECTED EYE EVERY 6 HOURS 07/27 completed Not Available Not Available Not Available ibuprofen 400 mg tablet TAKE 1 TABLET ORAL ROUTE EVERY 6 HOURS NEEDED 11/18 completed Not Available Not Available Not Available docusate sodium 100 mg capsule TAKE 1 CAPSULE (100 MG TOTAL) BY MOUTH EVERY TWELVE (12) HOURS. 11/18 completed Not Available Not Available Not Available hydroxyzine HCl 25 mg tablet TAKE 1 TABLET BY MOUTH EVERY 6 HOURS NEEDED 01/27 completed Not Available Not Available Not Available diclofenac sodium 50 mg tablet,meliton yed release 05/26 completed Not Available Not Available Not Available ondansetron 4 mg disintegrat ing tablet TAKE 1 TABLET BY MOUTH EVERY 8 HOURS NEEDED FOR NAUSEA FOR UP TO 7 DAYS 11/18 completed Not Available Not Available Not Available fluticasone propionate 50 mcg/actuati on nasal spray,suspe nsion SPRAY 1 SPRAY BY INTRANASA L ROUTE TWICE A DAY FOR 30 DAYS 11/18 completed Not Available Not Available Not Available sertraline 50 mg tablet TAKE 1 TABLET BY MOUTH EVERY DAY FOR 30 DAYS 03/22 completed Not Available Not Available Not Available medroxyprog esterone 150 mg/mL intramuscul ar suspension TAKE DIRECTED INTRAMUSC ULARLY (90 DAY SUPPLY) 07/27 completed Not Available Not Available Not Available doxycycline hyclate 100 mg tablet TAKE 1 TABLET ORAL ROUTE EVERY 12 HOURS FOR 7 DAYS 11/18 completed Not Available Not Available Not Available naproxen 500 mg tablet TAKE 1 TABLET BY MOUTH IN THE MORNING AND IN THE EVENING WITH MEALS 11/18 completed Not Available Not Available Not Available azithromyci n 500 mg tablet TAKE 2 TABLETS BY MOUTH A SINGLE DOSE. 11/18 completed Not Available Not Available Not Available medroxyprog esterone 150 mg/mL intramuscul ar syringe 1 ML EVERY 3 MONTHS BY INTRAMUSC ULAR ROUTE . 01/27 completed Not Available Not Available Not Available escitalopra m 10 mg tablet TAKE 1 TABLET BY MOUTH EVERY DAY FOR 30 DAYS 01/27 completed Not Available Not Available Not Available nitrofurant oin monohydrate /macrocryst als 100 mg capsule TAKE 1 CAPSULE BY MOUTH TWICE A DAY FOR 10 DAYS 06/26 completed Not Available Not Available Not Available Mucinex 1,200 mg tablet, extended release Take 1 tablet twice a day by oral route for 7 days. 05/26 completed Not Available Not Available Not Available Gavilax 17 gram/dose oral powder DISSOLVE 17 GRAMS INTO WATER AND DRINK BY MOUTH EVERY DAY 11/18 completed Not Available Not Available Not Available BinaxNOW COVID-19 Ag Card kit TEST DIRECTED TODAY 06/26 completed Not Available Not Available Not Available Vitals Date Recorded Body height Body mass index (BMI) Body weight Oxygen saturation Oxygen saturation in Arterial blood by Pulse oximetry Heart rate Respiratory rate Body temperature Systolic And Diastolic Provider Name and Address Organization Details Last Updated DateTime 4 162.56 cm 25.4 kg/m2 53059.6 7 g 100 % 100 % 96 /min 16 /min 97.7 [degF] 125/75 mm[Hg] Romana [facility] 4 12:42:46 Date Recorded Body height Body mass index (BMI) Body weight Oxygen saturation Oxygen saturation in Arterial blood by Pulse oximetry Heart rate Respiratory rate Body temperature Systolic And Diastolic Provider Name and Address Organization Details Last Updated DateTime 4 162.56 cm 25.4 kg/m2 83606.6 7 g 98 % 98 % 85 /min 16 /min 98.6 [degF] 114/79 mm[Hg] Romana Bárbara PA - [facility] 4 13:11:16 Date Recorded Body height Provider Name an d Address Organization Details Last Updated DateTime 03/14/2024 162.56 cm Abril Samson PA - [facility] 03/14/2024 13:57:10 Date Recorded Body height Body mass index (BMI) Body weight Oxygen saturation Oxygen saturation in Arterial blood by Pulse oximetry Heart rate Respiratory rate Body temperature Systolic And Diastolic Provider Name and Address Organization Details Last Updated DateTime 4 162.56 cm 24.7 kg/m2 64294.3 g 99 % 99 % 88 /min 18 /min 99 [degF] 109/76 mm[Hg] Abril Samson PA - [facility] 4 19:19:39 Date Recorded Body height Body mass index (BMI) Body weight Oxygen saturation Oxygen saturation in Arterial blood by Pulse oximetry Pain severity - 0-10 verbal numeric rating [Score] - Reported Heart rate Respiratory rate Body temperature Systolic And Diastolic Provider Name and Address Organization Details Last Updated DateTime 3 162.56 cm 25.2 kg/m2 36459.0 8 g 98 % 98 % 0 112 /min 16 /min 98.2 [degF] 111/72 mm[Hg] KY DELONG PA - [facility] 3 15:24:22 Social History Question Answer Notes LastModified by [employer] ion Details LastModified Time Tobacco Smoking Status Never Smoker VIRI hernández PA - [facility] 06/26/2022 17:42:54 Have You Had A Flu Shot This Season? No [email or web address] Information not available 03/04/2023 If No, Would You Like A Flu Shot Today? No [email or web address] Information not available 03/04/2023 Have You Recently Traveled Abroad? No [email or web address] Information not available 06/26/2022 Are You Currently In School? No [email or web address] Information not available 03/04/2023 Sex: Female Functional Status Question Answer Note LastModified by [employer] ion Details LastModified Time Do you use any illicit or recreational drugs? No [email or web address] Information not available 06/26/2022 Do you or have you ever used any other forms of tobacco or nicotine? No [email or web address] Information not available 06/26/2022 What is your level of alcohol consumption? None [email or web address] Information not available 06/26/2022 Are you currently employed? No [email or web address] Information not available 08/15/2022 Mental Status None recorded. Family History Relationship Description Onset Age of this Age Resolved Age Notes LastModified by Organization Details LastModified Time Father No current problems or disability [email or web address] Not available 02/2023 17:42:46 Mother No current problems or disability Not available 02/2023 17:42:46 Unspecified Relation Diabetes mellitus [email or web address] Not available 2022 15:26:02 Unspecified Relation Hypertensive disorder [email or web address] Not available 2022 15:26:10 Unspecified Relation Cerebrovascu lar accident [email or web address] Not available 02/2023 15:26:52 Unspecified Relation Malignant neoplastic disease [email or web address] Not available 2022 15:27:01 Medical History No medical history recorded. Gynecological History Statement/Question Response Date of LMP 02/25/2024 Is there any chance of ? No LMP Definite Obstetrics History GPAL:G 0 P 0 0 0 0 Immunizations Vaccine Type Date Status Note Provider Nam e and Address Organization Details Recorded Time COVID-19, mRNA, LNP-S, PF, 100 mcg/0.5mL dose or 50 mcg/0.25mL dose 01/08/2021 completed SAURAV Pereira [facility] 01/30/2023 12:16:34 Tdap 04/06/2021 completed SAURAV Pereira [facility] 01/30/2023 12:16:34 Past Encounters Encounter ID Performer Location Encounter Start Date Encounter Closed Date Diagnosis/Indication Diagnosis SNOMED-CT Code Diagnosis ICD10 Code Diagnosis Note [id number] [address] [address] [facility] [place] [address] 06/04/2021 16:21:30 06/04/2021 18:24:42 [id number] [address] [address] [place] [address] 03/31/2022 10:08:13 03/31/2022 10:52:06 [id number] [address] [address] [place] [address] 09/19/2019 13:53:19 09/19/2019 15:28:17 [id number] [address] [address] [place] [address] [place] [address] 01/08/2021 12:04:06 01/08/2021 12:30:09 [id number] [address] [address] [place] [address] 06/29/2019 14:26:50 06/29/2019 15:55:28 [id number] [address] [address] [place] [address] [place] [address] 09/22/2021 13:58:36 09/22/2021 14:56:56 [id number] [address] [address] [place] [address] 05/31/2020 12:37:44 05/31/2020 15:59:51 [id number] [address] [address] [facility] [place] [address] 12/16/2021 13:32:59 12/16/2021 15:45:57 [id number] [address] [facility] [address] [address] [place] [address] 01/13/2022 16:01:28 01/13/2022 16:34:56 [id number] [address] [facility] [address] [address] [place] [address] 02/16/2020 12:18:05 02/16/2020 13:01:44 [id number] [address] [facility] [address] [address] [place] [address] 02/13/2022 11:49:53 02/13/2022 16:47:25 [id number] SAURAV MCKEON [address] [address] [place] [address] 06/26/2022 16:01:06 06/26/2022 18:21:52 Viral syndrome [id number] B34.9 [id number] SAURAV MCKEON [facility] [address] [place] [address] 08/15/2022 16:47:32 08/15/2022 17:30:43 Pain of left hand [id number] 62442 M79.642 Closed fra cture of proximal phalanx of ring finger of left hand 3799003583 [id number] S62.645A [id number] SAURAV MILNER [address] [address] [place] [address] 09/04/2022 10:47:21 09/04/2022 11:11:24 History and physical examination, occupation [id number] Z02.1 [id number] 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, 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 [facility] [address] [place] [address] 09/20/2022 11:45:04 09/20/2022 13:38:28 Pain in right thumb 1234007292 991497 M79.644 Subungual hematoma of right thumb 7562623885 [id number] S60.111A [id number] SAURAV [facility]rete [facility] [address] [place] [address] 01/27/2023 17:26:34 01/27/2023 18:55:47 Viral syndrome [id number] B34.9 [id number] Tequila Mcclain, 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 [address]_[facility] centerdelmiMotion Picture & Television Hospitalmon althSov[facility] [place] [address] [place] [address] 01/30/2023 11:50:27 01/30/2023 12:50:28 Nasal discharge [id number] J00 [id number] Tequila Mcclain, 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 [address]th[facility] [place] [address] [place] [address] 02/02/2023 11:52:17 02/02/2023 12:43:52 Asymptomatic SARS-CoV-2 [id number] U07.1 [id number] SAURAV Negrete [address] alth[facility] [place] [address] [place] [address] 02/26/2023 09:26:33 02/26/2023 10:49:23 Viral syndrome [id number] B34.9 [id number] SAURAV MILNER [address]_[facility] Campusommonwe alth[facility] [place] [address] [place] [address] 03/04/2023 14:08:38 03/04/2023 14:56:04 Sore throat [id number] J02.9 Nasal discharge [id number] J00 [id number] SAURAV MILNER [address]_[facility] althSov[facility] [place] [address] [place] [address] 03/22/2023 19:19:26 03/22/2023 19:47:53 Acute urinary tract infection [id number] N39.0 Candidiasis of vagina 72 531152 B37.31 Constipation 43446528 K5 9.00 [id number] SAURAV MILNER [address]_[facility] althSov[facility] [place] [address] [place] [address] 03/31/2023 12:39:23 03/31/2023 13:35:16 Viral upper respiratory tract infection [id number] J06.9 [id number] SAURAV Negrete 460_[facility] [address] [place] [address] 6 05/26/2023 15:11:02 05/26/2023 15:53:24 Acute conjunctivitis of bilateral eyes [id number] 83480 H10.33 [id number] STEPHANIE WEI, [place] [address]_[facility] [address] [place] [address] 07/27/2023 12:30:18 07/27/2023 12:58:10 Viral upper respiratory tract infection 923330168 J06.9 [id number] SAURAV Negrete [address]_[facility] [address] [place] [address] 11/19/2023 12:50:55 11/19/2023 13:38:30 Viral syndrome [id number] B34.9 [id number] SAURAV Negrete 46[address]_[facility] [address] [place] [address] 03/14/2024 13:53:24 03/14/2024 14:37:56 Viral syndrome 638841429 B34.9 Dysuria 26525914 R30.0 [id number] SAURAV Negrete [facility] [address] [facility] [place] [address] 03/24/2024 19:07:54 03/24/2024 19:49:37 Acute conjunctivitis of left eye [id number] 89621 H10.32 Health Concerns Section Related Observation LastModified by Organization Detai ls LastModified Time None Recorded Concern Status LastModified by Organization Details LastModified Time None Recorded Advance Directives Directive None Recorded Payers Insurance Date Sequence Insurance Name Policy Number Policy Han Covered Member ID Han Member ID Guarantor Name 03/24/2024 1 [facility] - [place]) VAMDN Ciarra Fink [id number] Ciarra Fink 09/04/2022 OC-ESCREEN [employer] Ro sue Fink OBGyn Episode No OBEpisode recorded.
--- OUTSIDE RECORDS SUMMARY | 2025-01-13 12:31 | XMS_ITS | Clinical Summary ---
Author Organization [facility] [employer] Address [address] [place] [address] [address] [place] [address] Care Team Providers Care Public Relations Associate Name Role Phone Anila Jones MD Primary Care Provider [phone] Allergies Active Allergy Reactions Criticality Noted Date Comments Shellfish Allergy 01/13/2025 rash Medications * This document contains information received from the source organization and may not represent a complete record from that organization. calcium carbonate (Tums) 500 MG chewable tabletIndicatio ns:Nausea and vomiting, unspecified vomiting type Chew 1 tablet (500 mg) if needed in the morning, at noon, in the evening, and at bedtime for indigestion or heartburn. 30 tablet 5 Active metroNIDAZOLE (Flagyl) 500 MG tablet Take 1 tablet (500 mg) by mouth 2 times daily for 7 days. 14 tablet 5 12/19/19 25 doxycycline (Vibra-Tabs) 100 MG tablet Take 1 tablet (100 mg) by mouth 2 times daily for 10 days. Take with a full glass of water and do not lie down for at least 30 minutes after. 20 tablet 5 12/22/19 25 Active Problems Problem Noted Date Diagnosed Date Chronic migraine without aura 01/13/2025 Moderate major depression 01/13/2025 Chlamydia 12/12/2024 Overview (12/12/2024): -treated with doxycycline 12/12/24, pt will recheck in 3 months Assessment & Plan (12/18/2024 2:16 PM EDT): Prescribed Doxycyline and Flagyl 12/11/24. -Recommended finishing doxycycline taking one pill twice a day. -Has follow-up for retesting. -ER precautions discussed. -Seek medical attention for worsening symptoms. History of abnormal cervical Pap smear Assessment & Plan (11/27/2024 1:53 PM EDT): Orders: POCT , urine manually resulted Encounters * This document contains information received from the source organization and may not represent a complete record from that organization. Date Type Department Care Team Description 01/13/2025 9:45 AM EDT Office Visit [address] [address] Anila Jones MD Dietary counseling; Exercise counseling 01/13/2025 Travel 01/09/2025 [place] [address] Whitney Cortez MA chart prep 01/06/2025 Travel 12/18/2024 2:00 PM EDT Office Visit [facility] [address] [address] Ngoc Aguilar MD Chlamydia (Primary Dx); Nausea and vomiting, unspecified vomiting type 12/18/2024 Travel 12/11/2024 Results Follow-Up [facility] [address] [address] Iraida Vidal RN Bacterial Vaginosis, Chlamydia/N. Gonorrhoeae RNA, TMA, Urogenitial, POCT urinalysis dipstick manually resulted, Additional followed-up results: 6 12/11/2024 [facility] [address] [address] Alaina Hansen FNP 12/11/[address] [address] Cory Dyson MD Results 12/10/2024 3:40 PM EDT [facility] [address] [address] Ngoc Aguilar MD Routine screening for STI (sexually transmitted infection) (Primary Dx); Vaginal itching; Family planning; Dysuria 12/10/2024 Travel 11/27/2024 1:40 PM EDT Office Visit [facility] [address] [place] [address] Ngoc Aguilar MD Left lower quadrant abdominal pain (Primary Dx); History of abnormal cervical Pap smear 11/27/2024 Travel 10/15/2024 Orders Only GENERIC EXTERNAL DATA DEPARTMENT Provider, Generic External Data from Last 3 Months Immunizations Immunization Administration Dates Next Due Tdap 04/06/2021 Family History Medical History Relation Name Comments Diabetes Maternal Grandmother Heart attack Maternal Grandmother Stroke Maternal Grandmother Relation Name Status Comments Father Maternal Grandmother Mother Social History Tobacco Use Types Packs/Day Years Used Date Smoking Tobacco: Never Smokeless Tobacco: Never Tobacco Cessation:Counseling Given: Not Answered Alcohol Use Standard Drinks/Week Comments Never 0 (1 standard drink = 0.6 oz pur e alcohol) Depression Answer Date Recorded Patient Health Questionnaire-9 Score 8 01/13/2025 Patient Health Questionnaire-9 Score 8 01/13/2025 Last PHQ-9: Questionnaire Data Not on file 0 01/13/2025 Housing Stability Answer Date Recorded What is your housing situation today? I do not have housing (Staying with others, in a hotel, in a usp, living outside on the street, on a beach, in a car, or in a park 01/13/[address] you li ve. Do you have problems with any of the following? None of the above 01/13/2025 Food Insecurity Answer Date Recorded Within the past 12 months, y ou worried that your food would run out before you got money to buy more: Never True 01/13/2025 Within the past 12 months,th e food you bought just didn't last and you didn't have enough money to get more: Never True Transportation Answer Date Recorded In the past 12 months, has l ack of transportation kept you from medical appts, meetings, work or from getting things needed for daily living? No 01/13/2025 Utilities Answer Date Recorded In the past 12 months, has t he electric, gas, oil or water company threatened to shut off services in your home? No 01/13/2025 Depression Answer Date Recorded Patient Health Questionnaire-2 Score 2 01/13/2025 Internet Access Answer Date Recorded Internet Access Q1 Yes 01/13/2025 Internet Access Q2 Not on file 01/13/2025 Comments No Sex and Gender Information Value Date Recorded Sex Assigned at Female 04/17/2022 10:21 AM EDT Legal Sex Female 10:21 AM EDT Gender Identity Female 11/27/2024 1:12 PM EDT Sexual Orientation Straight 04/17/2022 10 :21 AM EDT Last Filed Vital Signs Vital Sign Reading Time Taken Comments Blood Pressure 128/74 01/13/2025 10:05 AM EDT Pulse 94 01/13/2025 10:05 AM EDT Temperature 36.5 C (97.7 F) 01/13/2025 10:05 AM EDT Respiratory Rate 20 01/13/2025 10:05 AM EDT Oxygen Saturation 97% 01/13/2025 10:05 AM EDT Inhaled Oxygen Concentration - - Weight 67.2 kg (148 lb 3.2 oz) 01/13/2025 10:05 AM EDT Height 162.6 cm (5' 4 ) 01/13/2025 10:05 AM EDT Body Mass Index 25.44 01/13/2025 10:05 AM EDT Plan of Treatment Health Maintenance Due Date Last Done Comments Family Planning (PISQ) 2015 HPV Vaccines (1 - 3-dose series) 2015 Hepatitis B Vaccines (1 of 3 - 19+ 3-dose series) 2019 Pap Smear 2021 COVID-19 Vaccine (2 - 2023-2 5 season) 2024 01/08/2021 Influenza Vaccine (#1) 2025 Disability Screening 01/06/2026 01/06/2025 Alcohol/Substance Use Screening 01/13/2026 01/13/2025 Depression Screening 01/13/2026 01/13/2025, 01/13/2025 SDOH Screening 01/13/2026 01/13/2025 Tobacco Screening 01/13/2026 01/13/2025 DTaP/Tdap/Td Vaccines (2 - T d or Tdap) 04/06/2031 04/06/2021 Zoster Vaccines (1 of 2) 2050 RSV Patients and Patients Aged 60 years or older (1 - 1-dose 75+ series) 2075 HIV Screening Completed 12/10/2024 Hepatitis C Screening Completed 12/10/2024 HIB Vaccines Aged Out No longer eligi ble based on patient's age to complete this topic Hepatitis A Vaccines Aged Out No long er eligible based on patient's age to complete this topic IPV Vaccines Aged Out No longer eligi ble based on patient's age to complete this topic Meningococcal B Vaccine Aged Out No l onger eligible based on patient's age to complete this topic Meningococcal Vaccine Aged Out No ya renetta eligible based on patient's age to complete this topic Pneumococcal Vaccine: Pediatrics (0 to 5 Years) and At-Risk Patients (6 to 49) Years Aged Out No longer eligible b ased on patient's age to complete this topic RSV under 20 months Aged Out No longe r eligible based on patient's age to complete this topic Rotavirus Vaccines Aged Out No longer eligible based on patient's age to complete this topic Procedures Procedure Name Priority Date/Time Associated Diagnosis Comments POCT , URINE Routine 12/18/2024 1:14 PM EDT Nausea and vomiting, unspecified vomiting type SYPHILIS SCREEN Routine 12/10/2024 4:14 PM EDT Routine screening for STI (sexually transmitted infection) HEPATITIS C AB W/REFL TO HCV RNA, QN, PCR Routine 12/10/2024 4:14 PM EDT Routine screening for STI (sexually transmitted infection) HIV 1/2 ANTIGEN/ANTIBODY, FOURTH GENERATION W/RFL Routine 12/10/2024 4:14 PM EDT Routine screening for STI (sexually transmitted infection) HCG, TOTAL, QN Routine 12/10/2024 4:14 PM EDT Family planning POCT , URINE Routine 12/10/2024 3:53 PM EDT Vaginal itching POCT URINALYSIS DIPSTICK Routine 12/10/2024 3:53 PM EDT Vaginal itching URINALYSIS, COMPLETE, WITH REFLEX TO CULTURE Routine 12/10/2024 3:47 PM EDT Vaginal itching CULTURE, URINE, ROUTINE Routine 12/10/2024 3:47 PM EDT CHLAMYDIA/N. GONORRHOEAE RNA, TMA, UROGENITAL Routine 12/10/2024 3:47 PM EDT Vaginal itching BACTERIAL VAGINOSIS PANEL Routine 12/10/2024 3:47 PM EDT Vaginal itching POCT , URINE Routine 11/27/2024 1:49 PM EDT History of abnormal cervical Pap smear CHLAMYDIA/N. GONORRHOEAE RNA, TMA, UROGENITAL Routine 10/15/2024 5:01 PM EDT SARS COV2/INFLUENZA A/B AND RSV RNA QL NAAT Routine 10/15/2024 5:01 PM EDT CULTURE, URINE, ROUTINE Routine 10/15/2024 12:00 AM EDT from Last 3 Months Results * POCT , urine manually resulted (12/18/2024 1:14 PM EDT) Only the most recent of3 resultswithin the time period is included. Pathologist [facility] Preg Test, Ur Negative Negative, Indeterminate, None Detected, Invalid, Specimen unsatisfactory for evaluation, Weakly Positive, 2+ Urine 12/18/2024 1:14 PM EDT us Ngoc Aguilar MD POINT OF CARE TEST ENTER/E DIT ORDERABLES Final Result * Syphilis Screen (12/10/2024 4:14 PM EDT) Pathologist [facility] Syphilis Screen Nonreactive Nonreactive [facility] Blood Venous blood specimen / Unknown 12/10/2024 4:14 PM EDT 12/10/2024 6:00 PM EDT us Ngoc Aguilar MD LAB BLOOD ORDERABLES Final Result Performing Organization Address City/[facility]/ZIP Co de Phone Number [facility] [address] [place] [address] [phone] * Hepatitis C Antibody with Reflex to HCV, RNA, Quantitative, Real-Time PCR (12/10/2024 4:14 PM EDT) Hepatitis C Antibody Nonreactive Nonreactive [facility] Comment:Antibodies to HCV no t detected; does not exclude early acuteHCV infection. Blood Venous blood specimen / Unknown 12/10/2024 4:14 PM EDT 12/10/2024 6:00 PM EDT Ngoc Aguilar MD LAB BLOOD ORDERABLES Final Result Performing Organization Address [facility] Co de Phone Number [facility] [address] [place] [phone] * HIV-1/2 Antigen and Antibodies, Fourth Generation, with Reflexes (12/10/2024 4:14 PM EDT) Pathologist [facility] HIV AB/AG Nonreactive Nonreactive [facility] Comment:HIV-1 p24 Ag and/or HIV-1/HIV-2 Ab not detected.A test result that is nonreactive does not exclude thepossibility of exposure to or infection with HIV-1 and/orHIV-2. Nonreactive results in this assay for individualswith prior exposure to HIV-1 and/or HIV-2 may be due toantigen and antibody levels that are below the limit ofdetection of this assay.The [id number] HIV Ag/Ab Combo assay result andsupplemental assay results should be interpreted inconjunction with the patient's clinical presentation,history and other laboratory results. If the results areinconsistent with clinical evidence, additional testing issuggested to confirm the result. Blood Venous blood specimen / Unknown 12/10/2024 4:14 PM EDT 12/10/2024 6:00 PM EDT Ngoc Aguilar MD LAB BLOOD ORDERABLES Final Result Performing Organization Address [facility] Co de Phone Number [facility] [address] [place] [address] [phone] * hCG, Total, Quantitative (12/10/2024 4:14 PM EDT) HCG Quantitative <2 mIU/mL [facility] Comment:Weeks post LMP Appro ximate hCG(Last Menstrual Period) Range (mIU/ml)3 - 4 weeks 9 - 1304 - 5 weeks 75 - 2,6005 - 6 weeks 850 - 20,8006 - 7 weeks 4000 - 100,2007 - 12 weeks 11,500 - 289,39353 - 16 weeks 18,300 - 137,84913 - 29 weeks (2nd trimester) 1,400 - 53,61188 - 41 weeks (3rd trimester) 940 - 60,000The [place] B- hCG assay is used for the early detection ofpregnancy; it cannot be used to diagnose any conditionunrelated to . If a B-hCG level is not supportedby the clinical evidence, results should be confirmed by analternative method (qualitative urine hCG, for example). Blood Venous blood specimen / Unknown 12/10/2024 4:14 PM EDT 12/10/2024 6:00 PM EDT us Ngoc Aguilar MD LAB BLOOD ORDERABLES Final Result Performing Organization Address [facility] Co de Phone Number [facility] [address] [place] [address] [phone] * (ABNORMAL) POCT urinalysis dipstick manually resulted (12/10/2024 3:53 PM EDT) Color, UA Yellow Clarity, UA Clear Glucose, UA Negative Bilirubin, UA Negative Ketones, UA Negative Spec Grav, UA 1.030 Blood, UA Negative Negative, None Detected pH, UA 6.0 Protein, UA Trace Comment:30mg/dL Urobilinogen, UA 2.0 Leukocytes, UA Trace Negative, Rare, Trace Nitrite, UA Negative Negative, None Detected Appearance, UA shiloh QC Media Lot # [id number] Lot# Expiration Date [id number] Urine 12/10/2024 3:53 PM EDT Ngoc Aguilar MD POINT OF CARE TEST ENTER/E DIT ORDERABLES Final Result * (ABNORMAL) Bacterial Vaginosis (12/10/2024 3:47 PM EDT) TRICHOMONAS VAGINALIS DETECTION BY PCR NOT DETECTED Not Detect [facility] BACTERIAL VAGINOSIS DETECTION BY PCR POSITIVE(A) Negative [facility] Comment:The BV organism targ ets of the Xpert Xpress MVP test can becommensal in women; Xpert Xpress MVP positive results forbacterial vaginosis should be considered in conjunction withother clinical and patient information to determine thedisease status. Organisms that are not detected by the XpertXpress MVP test have also been reported to be associatedwith BV and aerobic vaginitis.The Xpert Xpress MVP test performance has not been evaluatedin patients under the age of 14. MARY GROUP DETECTION BY PCR DETECTED(A) Not Detect [facility] Mary glab krusei PCR NOT DETECTED Not Detect [facility] Swab Vaginal structure / Unknown 12/10/2024 3:47 PM EDT 12/10/2024 5:58 PM EDT Ngoc Aguilar MD LAB MICROBIOLOGY - GENERAL ORDERABLES Final Result [facility] [address] [place] [phone] * Urinalysis, Complete, with Reflex to Culture (12/10/2024 3:47 PM EDT) Color Urine Yellow [facility] Appearance Urine Turbid [facility] PH 6.0 5.0 - 9.0 [facility] Glucose Urine UA Negative Negative mg/dL [facility] Urine Blood Negative Negative [facility] Specific Saxton - Urine 1.025 1.005 - 1.025 [facility] Urine Protein Trace Neg-Trace mg/dL [facility] Urine Ketones Trace Negative mg/dL [facility] Nitrite Urine Negative Negative [facility] Leukocyte Esterase Urine Negative Negative [facility] RBC Urine 0-2 0 - 2 /HPF [facility] Urine WBC 0-5 0 - 5 /HPF [facility] Urine Squamous Epithelial Cell 11-20 0 - 2 /HPF [facility] Urine Bacteria 4+ None Seen [facility] Hyaline Casts, Urine 0-2 0 - 2 /LPF [facility] Urine 12/10/2024 3:47 PM EDT 12/10/2024 5:58 PM EDT Narrative [facility] - 12/10/2024 6:29 PM EDT Urine, Clean Catch gNoc Aguilar MD LAB URINE ORDERABLES Final Result [facility] [address] [place] [phone] * (ABNORMAL) Chlamydia/N. Gonorrhoeae RNA, TMA, Urogenitial (12/10/2024 3:47 PM EDT) Only the most recent of2 resultswithin the time period is included. CT PCR DETECTED(A) Not Detect. [facility] Comment:Detected results may be observed after successful antibiotictreatment due to target nucleic acids from residualnon-viable chlamydia. As with many diagnostic tests, resultsfrom the Xpert CT/NG assay should be interpreted inconjunction with other laboratory and clinical dataavailable to the clinician.Xpert CT/NG performance has not been evaluated in patientsless than 14 years of age. The assay should not be used forthe evaluationof suspected sexual abuse or for other medico- legalindications. Additional testing is recommended inany circumstance when false positive or false negativeresults could lead to adverse medical, social orpsychological consequences.These results must be reported by the ordering clinician orclinical facility to the [facility]as required by state law. NG PCR NOT DETECTED Not Detect. [facility] Comment:A not detected test result does not exclude the possibilityof infection because test results can be affected byimproper specimen collection, concurrent antibiotic therapy,or the number of organisms in the specimen which may bebelow the sensitivity of the test. As with many diagnostictests, results from the Xpert CT/NG assay should beinterpreted in conjunction with other laboratory andclinical data available to the clinician.Xpert CT/NG performance has not been evaluated in patientsless than 14 years of age. The assay should not be used forthe evaluationof suspected sexual abuse or for other medico-legalindications. Additional testing is recommended in anycircumstance when false positive or false negative resultscould lead to adverse medical, social or psychologicalconsequences. Swab (Vaginal Swab) 12/10/2024 3:47 PM EDT 12/10/2024 5:58 PM EDT Ngoc Aguilar MD LAB MICROBIOLOGY - GENERAL ORDERABLES Final Result Performing Organization Address [facility] Co de Phone Number [facility] [address] [place] [phone] * Culture, Urine, Routine (12/10/2024 3:47 PM EDT) Only the most recent of2 resultswithin the time period is included. Urine Urine specimen obtained by clean catch procedure / Unknown 12/10/2024 3:47 PM EDT 12/10/2024 5:57 PM EDT Comment:UACC Narrative [facility] - 12/12/2024 12:03 PM EDT Urine Culture Report Result Urine Culture > 100,000 cfu/ml Urine Culture Mixed bacterial sona characteristic of Urine Culture urogenital contamination. Specimen Source: Urine clean catch Ngoc Aguilar MD LAB MICROBIOLOGY - GENERAL ORDERABLES Final Result Performing Organization Address [facility] Co de Phone Number [facility] [address] [place] [phone] * SARS-CoV-2 RNA, Influenza A/B, and RSV RNA, Ql NAAT (10/15/2024 5:01 PM EDT) Influenza A PCR NEGATIVE Negative [facility] Influenza B PCR NEGATIVE Negative [facility] Resp Syncy Virus RNA Qual PCR NEGATIVE Negative [facility] SARS COV2 PCR NEGATIVE Negative [facility] Comment:All test results mus t be correlated with clinical findings.Negative results do not preclude SARS-CoV2, influenza Avirus, influenza B virus and/or RSV infectionand should not be used as the sole basis for treatment orother patient management decisions. Negative results must becombined with clinical observations, patient history, andepidemiological information.This test has not been evaluated for monitoring treatment ofinfection.This test has been authorized by the FDA under an EmergencyUse Authorization (EUA) for use by authorized laboratories.Testing performed on the [employer] GeneXpert utilizingreal-time RT-PCR.All SARS CoV2 and positive influenza A/B results arereported to [facility]. 10/15/2024 5:01 PM EDT 10/15/2024 5:05 PM EDT us Generic External Data Provider LAB MICROBIOLOGY - GENERAL ORDERABLES Final Result [facility] [address] [place] [phone] from Last 3 Months Insurance [facility] C3 Care Teams Public Relations Associate Relationship Specialty Start Date End Date Anila Jones MD [address] [place] [address] [place] [address] PCP - General Family Medicine 01/13/25
--- OUTSIDE RECORDS SUMMARY | 2025-01-13 12:31 | XMS_ITS ---
Author Name [facility] Organization Unknown Encounters Encounter Type Encounter Reason Primary Diagnosis Location Date Emergency URINARY TRACT INFECTION, SITE NOT SPECIFIED URINARY TRACT INFECTION, SITE NOT SPECIFIED [facility] 09/01/2024 Ambulatory [facility] 08/25/2024 Emergency NAUSEA WITH VOMITING, UNSPECIFIED NAUSEA WITH VOMITING, UNSPECIFIED [facility] 08/24/2024 Ambulatory [facility] 04/17/2024 Emergency VIRAL INFECTION, UNSPECIFIED VIRAL INFECTION, UNSPECIFIED [facility] 04/17/2024 Emergency UNSPECIFIED ABDOMINAL PAIN UNSPECIFIED ABDOMINAL PAIN [facility] 02/22/2024 Emergency COMPLETE OR UNSP SPONTANEOUS WITHOUT COMP COMPLETE OR UNSP SPONTANEOUS WITHOUT COMP [facility] 02/16/2024 Care Team Organization Name Specialty Phone Email Start Date End Da te [facility] 02/17/2024
--- OUTSIDE RECORDS SUMMARY | 2025-01-13 12:31 | XMS_ITS | Clinical Summary ---
Author Organization [facility] Address [address] [place] [address] Care Team Providers Care Ball Shagger Name Role Phone Radha Alfaro Pcp/Family Primary Care Provider [phone] Allergies Active Allergy Reactions Criticality Noted Date Comments Shellfish Derived Rash Medium 06/24/2018 Medications Medroxyprogestero ne,Contracep, (DEPO-PROVERA) 150 mg/mL SyringeIndication s:Encounter for Depo-Provera contraception 1 mL every 3 months by IntraMUSCULAR route . 1 mL 4 08/15/19 22 Active Additional Information Patient taking differently:150 mg IntraMUSCULAR EVERY 3 MONTHS,2nd shot 11/18/21, Reason: Other, Reported on 11/18/2021 sulfamethoxazole- trimethoprim (BACTRIM DS) 800-160 mg Tablet take 1 tablet every 12 hours by mouth . 20 tablet 10/22/19 22 Active Additional Information Patient not taking.Reason: Other, Informant: Self/Patient, Reported on 11/18/2021 naproxen (NAPROSYN) 500 mg Tablet take 1 tablet in the morning and 1 tablet in the evening by mouth. take with meals. 10 tablet 08/16/19 24 Active methocarbamoL (ROBAXIN) 500 mg Tablet take 1 tablet four times daily as needed by mouth for Pain. 10 tablet 08/16/19 24 Active Active Problems Problem Noted Date Diagnosed Date Pelvic pain in , antepartum, second tri mester 04/06/2021 Resolved Problems Problem Noted Date Diagnosed Date Resolved Date (spontaneous vaginal delivery) 06/25/2021 08/05/2021 Full-term premature rupture of membranes 06/24/2021 06/25/2021 Nausea and vomiting in 04/27/2021 08/05/2021 Pain of round ligament during 04/12/2021 08/05/2021 care in second trimester 04/06/2021 08/05/2021 Overview (06/18/2021): OBS patient. Language: Mosotho problems Rh __ / Rub __ / GBS __ 1. + GBS UTI- neg GERARDO, will ppx in labor 2. Chronic pelvic pain in 3. renal pelvis dilation- resolved. 4. Hx PTD at 36wks, MFM consult complete. 5. covid in - growth US 06/07 EFW 49%tile 6. Isolated mild range BP at 27w Initial labs WNL and reviewed by: __ Anatomy US reviewed by: __, missing views ___ Routine care CF __, Hgb Elect __ Genetics: __ Vaccines: flu (not recd), Tdap (not recd) feeding: __ Contraception: __ Supervision of other normal , antepartum 06/24/2018 02/04/2019 Overview (10/16/2018): ROMEO: 01/19/19 based on LMP, confirmed with 12 wk sono 06/24/18 GBS UTI, PenV-K, GERARDO negatuve 06/24/18 +CZ, 07/23/18 negative PP Contraception: Nexplanon Anemia 10/15/18 - iron, folic acid, colace Immunizations Name Administration Dates Next Due TDAP Vaccine 04/06/2021 Family History Medical History Relation Name Comments Diabetes Maternal Grandmother Breast Cancer Neg Hx Relation Name Status Comments Father Maternal Grandmother Mother Social History Tobacco Use Types Packs/Day Years Used Date Smoking Tobacco: Never Smokeless Tobacco: Never Alcohol Use Standard Drinks/Week Comments No 0 (1 standard drink = 0.6 oz pur e alcohol) [place] Depression Scale Answer Date Recorded [place] Depression Scale Total 13 08/05/2021 The thought of harming myself has occurred to me . Never 08/05/2021 Comments No Sex and Gender Information Value Date Recorded Sex Assigned at Female 04/20/2021 8:04 AM EDT Legal Sex Female 1:36 PM EST Gender Identity Female 04/20/2021 8:04 AM EDT Sexual Orientation Straight 04/20/2021 8: 04 AM EDT Last Filed Vital Signs Vital Sign Reading Time Taken Comments Blood Pressure 111/69 08/16/2023 10:46 PM EST Pulse 93 08/16/2023 10:46 PM EST Temperature 36.8 C (98.2 F) 08/16/2023 10:46 PM EST Respiratory Rate 18 08/16/2023 10:46 PM EST Oxygen Saturation 98% 08/16/2023 10:46 PM EST Inhaled Oxygen Concentration - - Weight 65.8 kg (145 lb) 08/16/2023 6:15 PM EST Height 162.6 cm (5' 4 ) 08/16/2023 6:15 PM EST Body Mass Index 24.89 08/16/2023 6:15 PM EST Plan of Treatment Health Maintenance Due Date Last Done Comments HPV Vaccines (1 - 3-dose series) 2015 Hepatitis B Vaccines (1 of 3 - 19+ 3-dose series) 2019 COVID-19 Vaccine (2 - season) 2024 01/08/2021 Cervical Cancer Screening 08/05/2024 08/05/2021 Influenza Vaccine (#1) 2025 DTaP/Tdap/Td Vaccine (2 - Td or Tdap) 04/06/2031 04/06/2021 Zoster Vaccines (1 of 2) 2050 HIV Screening Completed 06/07/2021, 06/0 12/2020, 10/15/2018, Additional history exists Hepatitis C Screening Completed 06/07/2021 , 11/22/2020, 06/24/2018 Chlamydia and Gonorrhea Screening Discontinued 10/21/2021, 06/07/2021, 01/31/2021, Additional history exists HIB Vaccines Aged Out No longer eligi ble based on patient's age to complete this topic Hepatitis A Vaccines Aged Out No long er eligible based on patient's age to complete this topic IPV Vaccines Aged Out No longer eligi ble based on patient's age to complete this topic Meningococcal (MEN-ACWY) Vaccine Aged Out No longer eligible based on patient's age to complete this topic Pneum Vac:Ped 0-5/At-Risk 6-64yrs Aged Out No longer eligible based on patient's age to complete this topic Rotavirus Vaccine Aged Out No longer eligible based on patient's age to complete this topic Procedures Procedure Name Priority Date/Time Associated Diagnosis Comments C. TRACHOMATIS/N.GONOR RHOEAE RNA (T207) Routine 10/21/2021 3:50 PM EDT Screen for STD (sexually transmitted disease) HPV, HIGH RISK (G101) Routine 08/05/2021 1:57 PM EST HEPATITIS C ANTIBODY REFLEX(HCREF) Routine 06/07/2021 2:45 PM EST Screening examination for STD (sexually transmitted disease) HIV-1/2 AG/AB, 4TH GEN,W/REFLEXES (G982) Routine 06/07/2021 2:45 PM EST Screening examination for STD (sexually transmitted disease) from Last 3 Months or Most Recently Relevant to Health Maintenance Results * C. TRACHOMATIS/N.GONORRHOEAE RNA (G207) (10/21/2021 3:50 PM EDT) Chlamydia Trachomatis RNA NOT DETECTED NOT DETECTED [facility] N.Gonorrhoeae RNA NOT DETECTED NOT DETECTED [facility] Note: (Note) The analytical performance characteristics of this assay, when used to test SurePath(TM) specimens have been determined by [facility]. The modifications have not been cleared or approved by the FDA. This assay has been validated pursuant to the CLIA regulations and is used for clinical purposes. For additional information, please refer to https://education. [employer]Scouts.c om/faq/HOG198 (This link is being provided for information/ educational purposes only.) Performed by [employer] Carie Leung [facility], [facility], [address], [place] [address] END[facility]ERVICAL 10/21/2021 3:50 PM EDT 10/22/2021 1:07 AM EDT Sahhnaz Reich IMAGE ASSEMBLER-C DNA AMP ORDERABLES Final Res ult Performing Organization Address [facility]/ZIP Co de Phone Number [address] [place], [place] * HPV, HIGH RISK (G101) (08/05/2021 1:57 PM EST) HPV DNA, High Risk Not Detected Not Detected [address] Comment: (Note) Methodology: Protective Signal Installer Helper-Mediated Amplification This assay detects E6/E7 viral messenger RNA (mRNA) from 14 high-risk HPV types (16,18,31,33,35,39,45,51,52,56,58,59,66,68). The analytical performance characteristics of this assay have been determined by [facility]. The modifications have not been cleared or approved by the FDA. This assay has been validated pursuant to the CLIA regulations and is used for clinical purposes. For additional information, please refer to http://education.[address]/faq/HTI151b2 (This link if provided for information/ educational purposes only.) Case Number [id number] Part (Source) Cervical/Endoc ervical ThinPrep Pap with imaging, low risk Lab studies performed by: [facility] located at [facility], [address] [place] [address] [id number] 08/05/2021 1:57 PM EST 08/10/2021 9:13 PM EST Shahnaz Reich IMAGE ASSEMBLER-C MICROBIOLOGY - GENERAL ORDER RICHIE Final Result Performing Organization Address [facility] Co de Phone Number [address] [place], [place] * HIV-1/2 AG/AB, 4TH GEN,W/REFLEXES (G982) (06/07/2021 2:45 PM EST) HIV Ag/Ab, 4th Generation SEE NOTE NON-REACT CARO [address] Comment: (Note) Result: NON-REACTIVE HIV-1 antigen and HIV-1/HIV-2 antibodies were not detected. There is no laboratory evidence of HIV infection. PLEASE NOTE: This information has been disclosed to you from records whose confidentiality may be protected by state law. If your state requires such protection, then the state law prohibits you from making any further disclosure of the information without the specific written consent of the person to whom it pertains, or as otherwise permitted by law. A general authorization for the release of medical or other information is NOT sufficient for this purpose. For additional information please refer to http://education.[address]/faq/AMS095 (This link is being provided for informational/ educational purposes only.) The performance of this assay has not been clinically validated in patients less than 2 years old. Performed by [facility], [address] [place] [address], [place] [address] 06/07/2021 2:45 PM EST 06/07/2021 9:29 PM EST Shahnaz Reich IMAGE ASSEMBLER-C LAB SEND OUTS Final Result Performing Organization Address [facility] Co de Phone Number [facility] [place], [place] * HEPATITIS C ANTIBODY REFLEX(HCREF) (06/07/2021 2:45 PM EST) Pathologist [facility] Hepatitis C Ab Screen Neg Neg [facility] HCV AB Sample/[place] Ratio 0.02 0.00 - 0.79 [facility] Comment: Neg (Note) Confirmatory testing by PCR will be performed as recommended by the CDC for all Reactive Screen or Equivocal results. Lab studies performed by: [facility] located at [facility], [address] [place] [id number] Blood, Venous 06/07/2021 2:4 5 PM EST 06/07/2021 9:29 PM EST Shahnaz Reich IMAGE ASSEMBLER-C CHEMISTRY ORDERABLES Final R esult Performing Organization Address [facility] Co de Phone Number [place] from Last 3 Months or Most Recently Relevant to Health Maintenance [facility] Advance Directives For more information, please contact: [phone] * Full Code (Latest Code Status on File) Date Activated Date Inactivated Comments 06/24/2021 10:50 AM 06/25/2021 7:56 PM * Full Code Date Activated Date Inactivated Comments 06/24/2021 10:17 AM 06/24/2021 10:50 AM * Full Code Date Activated Date Inactivated Comments 06/24/2021 4:06 AM 06/24/2021 10:17 AM Care Teams Ball Shagger Relationship Specialty Start Date End Date , No Pcp/Family [address] [place] [address] PCP - General Family Medicine 07/09/18
--- OUTSIDE RECORDS SUMMARY | 2025-01-13 12:31 | XMS_ITS | Clinical Summary ---
Author Organization [facility] Address [address] [place] [id number] Care Team Providers Care Courtroom Deputy Or Calendar Clerk Name Role Phone Pcp, None Per Patient Primary Care Provider Unav ailable Source Comments In the event that these patient records contain information protected by 42 CFRpart 2 (i.e., would identify the patient as a substance abuser and was obtainedby a federally assisted substance abuse program to diagnose, refer fortreatment or treat the patient for substance abuse), please be advised of thefollowing: This information has been disclosed to you from records protected by Federalconfidentiality rules (42 CFR part 2). The Federal rules prohibit you frommaking any further disclosure of this information unless further disclosure isexpressly permitted by the written consent of the person to whom it pertains oras otherwise permitted by 42 CFR part 2. A general authorization for therelea se of medical or other information is NOT sufficient for this purpose.The Federal rules restrict any use of the information to criminally investigateor prosecute any alcohol or drug abuse patient. expressly permitted by the written consent of the person to whom it pertains or as otherwise permitted by 42 CFR part 2. A general authorization for the release of medical or other information is NOT sufficient for this purpose. The Federal rules restrict any use of the information to criminally investigate or prosecute any alcohol or drug abuse patient.[facility] Allergies Active Allergy Reactions Criticality Noted Date Comments Shellfish Derived Rash Low 06/24/2018 Medications multivitamin, , folic acid-iron, 27-1 mg Tab Take 1 tablet by mouth daily. Active Active Problems No known active problems Social History Tobacco Use Types Packs/Day Years Used Date Smoking Tobacco: Never Smokeless Tobacco: Never Alcohol Use Standard Drinks/Week Comments Never 0 (1 standard drink = 0.6 oz pur e alcohol) Substance Use Answer Date Recorded In the past year, how often have you used prescription drugs for non-medical reasons? Not on file 04/23/2024 In the past year, how often have you used illega l drugs? Not on file 04/23/2024 In the past year, have you u sed any substance for non-medical reasons? No 04/23/2024 Comments Unknown Sex and Gender Information Value Date Recorded Sex Assigned at Female 03/12/2021 12:59 PM EDT Legal Sex Female 11:28 PM EST Gender Identity Female 03/12/2021 12:59 PM EDT Sexual Orientation Straight 03/12/2021 12 :59 PM EDT Last Filed Vital Signs Vital Sign Reading Time Taken Comments Blood Pressure 124/73 02/15/2024 7:33 PM EDT Pulse 88 02/15/2024 7:33 PM EDT Temperature 36.6 C (97.9 F) 02/15/2024 7:33 PM EDT Respiratory Rate 18 02/15/2024 7:33 PM EDT Oxygen Saturation 100% 02/15/2024 7:33 PM EDT Inhaled Oxygen Concentration - - Weight 65.3 kg (144 lb) 02/15/2024 4:03 PM EDT Height 162.6 cm (5' 4 ) 02/15/2024 4:03 PM EDT Body Mass Index 24.72 02/15/2024 4:03 PM EDT Plan of Treatment Health Maintenance Due Date Last Done Comments HPV Vaccines (1 - 3-dose series) 2015 Hepatitis C Screen 2018 Pap Smear with Reflex HPV (21-29) 2021 COVID-19 Vaccine ( - 2023-2 5 season) 2024 Influenza Vaccine (#1) 2025 DTaP/Tdap/Td Vaccines (2 - T d or Tdap) 04/06/2031 04/06/2021 Pneumococcal Vaccine 0-49 Aged Out No longer eligible based on patient's age to complete this topic Advance Directives Documents on File Type Date Recorded Patient Driver Starting Gate Expl anation Advance Directives 05/29/2019 1:11 PM [facility] H: ADVANCE DIRECTIVE/PATIENT RIGHTS [ , ADVANCED DIRECTIVES] * Full Code (Latest Code Status on File) Date Activated Date Inactivated Comments 02/16/2021 4:13 PM Care Teams Courtroom Deputy Or Calendar Clerk Relationship Specialty Start Date End Date Pcp, None Per Patient [address] [place] [address] PCP - General 12/17/20
[2025-01-13 13:08] LABS: MANUAL DIFF FLAG NO
[2025-01-13 13:25] LABS: Hematocrit 39.4 % (37.0-47.0); Hemoglobin 13.0 g/dl (12.0-16.0); Imm Gran Abs Auto 0.01 X10*3/uL (0.00-0.03); Imm Gran Pct Auto 0.1 % (0.0-0.4); Lymphocytes Absolute Auto 1.6 X10*3/uL (1.2-4.9); Mean Corpuscular HGB Conc 33.0 g/dl (31.0-35.0); Mean Corpuscular Hemoglobin 29.2 pg (27.0-33.0); Mean Corpuscular Volume 88.5 fL (80.0-98.0); NRBC Abs Auto 0.000 X10*3/uL (0.0-0.012); NRBC Pct Auto 0.0 /100WBC (0.0-0.2); Platelet Count 274 X10*3/uL (160-400); Red Blood Count 4.45 X10*6/uL (4.20-5.50); White Blood Count 6.9 X10*3/uL (4.8-10.8)
[2025-01-13 13:46] LABS: Alanine Aminotransferase 12 U/L (0-31); Albumin Level 5.1 g/dL (3.5-5.0); Alkaline Phosphatase 105 U/L (39-117); Anion Gap 12 (12-20); Aspartate Amino Transferase 20 U/L (5-31); Blood Urea Nitrogen 7 mg/dL (9-16); Calcium 9.4 mg/dL (8.4-10.2); Carbon Dioxide 26 mmol/L (22-29); Chloride 107 mmol/L (96-108); Estimated Glomerular Filt Rate > 60; Potassium 3.8 mmol/L (3.3-5.1); Sodium 141 mmol/L (135-145); Total Protein 7.4 g/dL (6.5-8.0)
== END 2025-01-13 11:19 | disposition home or self-care (01) ==
LOC: HO.HHCL 11:18
PROVIDERS: PCP General Practice; Visit Provider General Practice
DX: Z71.3 Dietary counseling and surveillance (principal)
CPT/HCPCS: 36415; 80053; 84443; 85025

== ENCOUNTER 2025-01-25 15:28 | Emergency (ER) | payer MEDICAID, SELFPAY ==
[2025-01-25 15:49] VITALS: BP 127/61; PULSE 81; RESP 18; TEMP 37.1; O2SAT 97; BMI 27.9
--- NOTE | 2025-01-25 15:57 | ED_ITS ---
HPI - General Adult General Chief complaint: Abdominal Pain Stated complaint: N/V more than a day Time Seen by Provider: 01/25/25 18:03 Source: patient and tray drier (all interactions with this patient were facilitated with an [facility] bobbin marker) Mode of arrival: ambulatory Limitations: language barrier (all interactions with this patient were facilitated with an [facility] bobbin marker) History of Present Illness ED Provider: Ingris Cunningham PA-C HPI narrative: Patient is a 24 year old assigned female at with a history of previous ectopic presenting to the emergency department today with nausea, vomiting, and concern she is . Patient states that over the last week she has had nausea and vomiting. Patient states that she is concerned she may be . Patient denies any dizziness, lightheadedness, abdominal pain, fever, chills, blurry vision, double vision, loss of vision, chest pain, difficulty breathing, shortness of breath, back pain, night sweats, pain with urination, increased urinary frequency, increased urinary urgency, blood in her urine or stool, syncope or a near syncopal episode, recent trauma or falls, bowel incontinence, bladder incontinence, or any other complaints at this time. Onset (ago): week(s) (1) Relieving factors: none Exacerbating factors: none Associated symptoms: nausea/vomiting Treatments prior to arrival: none Related Data Previous Rx's ?Medication ?Instructions ?Recorded levofloxacin 500 mg tablet 500 mg PO DAILY #9 tabs phenazopyridine 100 mg tablet 100 mg PO TID PRN pain 6 doses #6 10/15/24 tabs sulfamethoxazole 800 1 tab PO BID 10 days #20 tab s 10/20/24 mg-trimethoprim 160 mg tablet (Bactrim DS) ondansetron 4 mg disintegrating 4 mg PO Q8H 3 days #9 tabs 01/25/25 tablet Allergies Allergy/AdvReac Type Severity Reaction Status Date / Time shellfish derived (SHELLFISH Allergy Unknown RASH Verified 01/25/25 15:59 DERIVED) SEAFOOD Allergy Severe RASH Uncoded 03/04/20 18:12 Review of Systems 2 Constitutional: Constitutional: Reports no additional constitutional complaints, Denies chills, Denies fever(s) and Denies night sweats Eyes: Eyes: Reports no additional eye complaints, Denies blurry vision, Denies change in vision, Denies diplopia, Denies eye discharge, Denies loss of vision and Denies eye pain ENT: Denies dizziness Cardiovascular: Cardiovascular: Reports no additional cardiovascular complaints, Denies chest pain, Denies lightheadedness, Denies Loss of Consciousness and Denies dyspnea Respiratory: Respiratory: Reports no additional respiratory complaints and Denies dyspnea Gastrointestinal: Gastrointestinal: Reports no additional gastrointestinal complaints, Denies abdominal pain, Denies melena, Denies hematochezia, Denies change in bowel habits, Denies change in stool character, Reports nausea and Reports vomiting Genitourinary: Genitourinary: Denies hematuria, Denies urinary frequency, Denies dysuria, Denies urinary incontinence, Denies urinary hesitancy and Denies urinary urgency Musculoskeletal: Musculoskeletal: Reports no additional musculoskeletal complaints, Denies numbness and Denies tingling Neurologic: Denies dizziness, Denies loss of vision, Denies numbness and Denies tingling Psychiatric: Psychiatric: Reports no additional psychiatric complaints Endocrine: Endocrine: Reports no additional endocrine complaints Hematologic/Lymphatic: Hematologic/Lymphatic: Reports no additional hematologic/lymphatic complaints Allergic/Immunologic: Allergic/Immunologic: Reports no additional allergic/immunologic complaints PMFSH Past Medical History Attestation statement: The following information was validated with the patient. Source: old records reviewed and nursing notes reviewed Social History Social History Alcohol intake: never Advance Directives: No Advance Directives Information Provided: No Do you have a plan to hurt others: No Plan Physical Exam ED Vital Signs: Vital Signs - 24 hr 01/25/25 15:49 01/25/25 18:11 Temperature 98.7 F 98.7 F Pulse Rate 81 81 Respiratory Rate 18 18 Blood Pressure 127/61 127/61 Pulse Oximetry 97 97 Oxygen Delivery Method Room Air Room Air BMI result Body Mass Index 27.9 Const General: cooperative, no acute distress, alert and awake Nutritional Appearance: well nourished Orientation/consciousness: patient oriented x3 HENMT Head: Yes normal to inspection and Yes atraumatic Ears: hearing grossly normal bilaterally and external ears normal General nose exam: Normal external nose present, no nasal discharge noted and no epistaxis Face and sinus: Yes normal facial exam, No abrasion and No laceration Mouth: Normal oral and palatal mucosa present, no drooling and no muffled voice Eyes General: appearance normal, both eyes and all related structures Periorbital: periorbital findings normal Eyelids: Yes eyelids normal Conjunctivae: conjunctivae normal Pupils: Equal, round and reactive pupils present EOM: EOMs intact bilaterally Neck Neck: Yes normal visual inspection and Yes full ROM Resp Effort & Inspection: normal respiratory effort and able to speak in complete sentences Neuro General: patient oriented x3, moves all extremities and CN's II-XI intact bilaterally Cranial nerves: Yes Equal, round and reactive pupils present Cognition (Neuro): normal cognition Extrem General: Yes normal to inspection, Yes full ROM and Yes capillary refill normal Psych Appearance: grossly normal Mental Status: mental status grossly normal Affect: normal affect Attitude: cooperative Thought process: Normal thought process present Thought content: Normal thought content present Insight: Good insight present (Psych) Course Course Course Narrative: Rapid medical examination performed in triage by Ingris Cunningham PA-C. Patient is a 24 year old assigned female at presenting to the emergency department with nausea, vomiting, and abdominal pain. Detailed physical exam and review of systems are deferred to the grinder mill operator. Labs ordered. Patient placed back in the waiting room pending room availability and results. Medical Decision Making Medical Decision Making [facility] Narrative: Patient is a 24 year old assigned female at with a history of previous ectopic presenting to the emergency department today with nausea, vomiting, and concern she is . Patient's physical exam was unremarkable. Patient's blood work was unremarkable. I explained my physical exam findings as well as all test results to the patient. I answered all questions asked by the patient. Patient requested to be discharged and declined to participate in any imaging or provide a urine sample. I stressed the importance of the patient taking her medication as directed (either prescribed or as the over the counter packaging recommends). I stressed the importance of the patient following up with her primary care provider. I stressed the importance of the patient returning to the emergency department immediately if her symptoms were to worsen or if she were to develop any dizziness, shortness of breath, difficulty breathing, chest pain, blurry vision, loss of vision, nausea, vomiting, abdominal pain, fever, chills, back pain, or any other complaints. Patient verbalized agreement and understanding with this treatment plan and discharge. Differential Diagnosis Differential Diagnoses: The differential diagnosis associated with the presentation includes Nausea Vomiting Admission/Observation Consideration of admission/observation: Escalation of care including admission/observation considered Patient would have been admitted to the hospital had her work up had any findings where hospital admission was appropriate and her clinical presentation warranted hospital admission. Lab Data [facility] Lab Attestation statement: I reviewed the patient's lab results. My interpretation of these results are in the [facility] Rationale portion of this note. 01/25/25 16:20 01/25/25 16:20 Labs: Lab Results 01/25/25 Range/Units 16:20 WBC 7.8 (4.8-10.8) X10*3/uL RBC 4.14 L (4.20-5.50) X10*6/uL Hgb 12.4 (12.0-16.0) g/dl Hct 36.5 L (37.0-47.0) % MCV 88.2 (80.0-98.0) fL MCH 30.0 (27.0-33.0) pg MCHC 34.0 (31.0-35.0) g/dl RDW 13.0 (11.0-16.0) % Plt Count 278 (160-400) X10*3/uL MPV 9.5 (9.4-12.3) fL Immature Gran % (Auto) 0.1 (0.0-0.4) % Neut % (Auto) 59.9 (45-73) % Lymph % (Auto) 30.5 (20-40) % Lipscomb % (Auto) 6.3 (2-11) % Eos % (Auto) 2.8 (0-4) % Baso % (Auto) 0.4 (0-2) % Lymph # (Auto) 2.4 (1.2-4.9) X10*3/uL Lipscomb # (Auto) 0.5 (0.1-1.2) X10*3/uL Eos # (Auto) 0.2 (0.0-0.4) X10*3/uL Baso # (Auto) 0.0 (0.0-0.2) X10*3/uL Abs Immat Gran (auto) 0.01 (0.00-0.03) X10*3/uL Absolute Neuts (auto) 4.7 (2.0-8.3) x10*3/uL Absolute Nucleated RBC 0.000 (0.0-0.012) X10*3/uL Nucleated RBC % (auto) 0.0 (0.0-0.2) /100WBC Sodium 139 (135-145) mmol/L Potassium 4.0 (3.3-5.1) mmol/L Chloride 104 (96-108) mmol/L Carbon Dioxide 27 (22-29) mmol/L Anion Gap 12 (12-20) BUN 12 (9-16) mg/dL Creatinine 0.61 (0.5-1.4) mg/dL Estim Creat Clear Calc 129.6 Estimated GFR > 60 Random Glucose 93 (60-115) mg/dL Calcium 9.3 (8.4-10.2) mg/dL Magnesium 1.8 (1.6-2.6) mg/dL Total Bilirubin 0.2 (0.0-1.0) mg/dL AST 19 (5-31) U/L ALT 13 (0-31) U/L Alkaline Phosphatase 132 H (39-117) U/L Total Protein 7.3 (6.5-8.0) g/dL Albumin 4.7 (3.5-5.0) g/dL Beta HCG, Quant < 2 mIU/mL Tests considered The following testing was considered but not selected: I considered obtaining a CT of the abdomen/pelvis and a UA however, the patient declined both of these tests stating she would like to leave. Discharge Plan Discharge Clinical Impression: Nausea and vomiting Patient Disposition: Home, Self-Care Instructions: Acute Nausea and Vomiting (DC) Additional Instructions: Your lab testing today was reassuring there is no emergent process for your symptoms. You are not at this time. Crystal an?lisis de laboratorio de hoy confirmaron que no hay ninguna emergencia relacionada con crystal s?ntomas. No est? embarazada en olivia momento. IF you are prescribed medications and/or you are taking over the counter medications - it is very important you continue to do so as prescribed / directed unless told otherwise. SI le recetan medicamentos y/o est? tomando medicamentos de venta micah, es muy importante que contin?e haci?ndolo seg?n lo recetado/indicado a menos que le indiquen lo contrario. Follow up with your primary care provider. Return to the emergency department immediately if your symptoms worsen or if you develop any dizziness, shortness of breath, difficulty breathing, chest pain, blurry vision, loss of vision, nausea, vomiting, abdominal pain, fever, chills, back pain, or any other complaints. Alexandra?seguimiento?con trimble m?dico de atenci?n primaria. Acuda inmediatamente al servicio de urgencias si crystal s?ntomas empeoran o si presenta falta de aliento, dificultad para respirar, dolor tor?cico, mareos, aturdimiento, dolor de espalda, dolor abdominal, fiebre, escalofr?os o cualquier otro s?ntoma. If you do not have a primary care provider - call any of the below numbers to establish and follow up with a primary care provider. Si no tiene un proveedor de atenci?n primaria, llame a cualquiera de los n?meros que aparecen a continuaci?n para establecer y hacer seguimiento con un proveedor de atenci?n primaria. [facility] ([place]) [phone] [facility], [address] [facility] ([address] [place]) [phone] [place] [address], [address] [facility], [address] [facility] ([address] [place]) [phone] [place] [address], [address] [facility], [address] [facility] ([place]) [phone] [place] [address], [address] [facility], [address] [facility] Family Medicine [phone] [place] [address] [place], [address] Please see the information below about our Patient Portal. If you are not yet enrolled in the [facility] Patient Portal, you will receive an enrollment email invitation following your visit to any [facility] care setting. You may also self-enroll in the Patient Portal by visiting our website: [email or web address] The following information is required to access the Patient Portal: - Your [facility] Medical Record Number - Your personal home email address (must match what is in your electronic medical record, Registration staff can assist with this) - Name - Date of Capabilities of the Patient Portal: - Message some providers - View upcoming appointments - Access your health summary, medical history, and visit history - View current conditions and allergies - View procedure and lab results - View your medications, including guidelines, side effects, and precautions - Complete pre-appointment questionnaires requested by your provider - Ready summary reports of your office visits and procedures To access the Patient Portal Mobile Stephen, follow these directions: - Search [employer] in the Stephen Store or Bookeen Store - Download the Stephen - Search for [facility] - Enter your login/password Portal del paciente Si usted no esta inscrito en el portal de pacientes de [facility], recibira minerva invitacion de inscripcion despues de trimble visita al [facility] o al [facility] via correo electronico. Tambien puede inscribirse voluntariamente en el portal de pacientes visitando nuestra pagina web: [email or web address] La siguiente informacion sera requerida para acceder al portal: - Trimble david de historia medica de [facility] - Trimble direccion de correo electronico personal - Nombre - Fecha de nacimiento Capacidades: Las siguientes capacidades estan disponibles en el portal de pacientes: - Enviar mensajes a algunos doctores - Verificar proximas citas - Acceso a trimble historial de ora, registro medico e historial de visitas - Malu las condiciones actuales y alergias malu procedimientos y resultados del laboratorio - Malu crystal medicamentos, incluyendo las pautas - Efectos secundarios y precauciones - Completar o llenar formularios / cuestionarios de - Citas solicitadas por trimble doctor - Leer los resumenes de reportes medicos de crystal visitas y procedimientos [place] acceder a la aplicacion movil: - LaroscoealNoitavonne en la Stephen Store o Bookeen Store - Descargue la aplicacion - [facility] - Ingrese trimble nombre de usuario / Contrasena Prescriptions: New ondansetron 4 mg tablet,disintegrating 4 mg PO Q8H 3 Days Qty: 9 0RF No Action levofloxacin 500 mg tablet 500 mg PO DAILY Qty: 9 0RF phenazopyridine 100 mg tablet 100 mg PO TID PRN (Reason: pain) Qty: 6 0RF sulfamethoxazole-trimethoprim [Bactrim DS] 800-160 mg tablet 1 tab PO BID 10 Days Qty: 20 0RF Referrals: Anila Jones MD [Primary Care Provider, Internal Medicine] Stand Alone Forms: Work/School Release Interventions: ED Discharge Assessment Last Done: 01/25/25 18:11 Discharge Date/Time: 01/25/25 18:12 Print Language: Thai
[2025-01-25 16:23] LABS: MANUAL DIFF FLAG NO
[2025-01-25 16:25] LABS: Hematocrit 36.5 % (37.0-47.0); Hemoglobin 12.4 g/dl (12.0-16.0); Imm Gran Abs Auto 0.01 X10*3/uL (0.00-0.03); Imm Gran Pct Auto 0.1 % (0.0-0.4); Lymphocytes Absolute Auto 2.4 X10*3/uL (1.2-4.9); Mean Corpuscular HGB Conc 34.0 g/dl (31.0-35.0); Mean Corpuscular Hemoglobin 30.0 pg (27.0-33.0); Mean Corpuscular Volume 88.2 fL (80.0-98.0); NRBC Abs Auto 0.000 X10*3/uL (0.0-0.012); NRBC Pct Auto 0.0 /100WBC (0.0-0.2); Platelet Count 278 X10*3/uL (160-400); Red Blood Count 4.14 X10*6/uL (4.20-5.50); White Blood Count 7.8 X10*3/uL (4.8-10.8)
--- OUTSIDE RECORDS SUMMARY | 2025-01-25 16:26 | XMS_ITS | Clinical Summary ---
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
--- OUTSIDE RECORDS SUMMARY | 2025-01-25 16:26 | XMS_ITS | Clinical Summary ---
Author Organization [employer] Address [address] [place] [address] 7[address] [place] [address] Care Team Providers Care Review Specialist Name Role Phone Anila Jones MD Primary Care Provider [phone] Allergies Active Allergy Reactions Criticality Noted Date Comments Shellfish Allergy 01/13/2025 rash Medications * This document contains information received from the source organization and may not represent a complete record from that organization. calcium carbonate (Tums) 500 MG chewable tabletIndications :Nausea and vomiting, unspecified vomiting type Chew 1 tablet (500 mg) if needed in the morning, at noon, in the evening, and at bedtime for indigestion or heartburn. 30 tablet 5 Active sertraline (Zoloft) 50 MG tabletIndications :Moderate major depression (CMS/HCC) Take 1 tablet (50 mg) by mouth Once per day. 30 tablet 3 5 025 Active hydrOXYzine HCl (Atarax) 25 MG tabletIndications :Anxiety Take 1 tablet (25 mg) by mouth if needed in the morning, at noon, and at bedtime for anxiety. 90 tablet 3 5 025 Active 28-0.8 MG tabletIndications :Encounter for preconception consultation Take 1 tablet by mouth Once per day. 90 tablet 3 5 026 Active Active Problems Problem Noted Date Diagnosed Date Chronic migraine without aura 01/13/2025 Moderate major depression 01/13/2025 Assessment & Plan (01/14/2025 9:27 AM EDT): saw patient today to begin intake/referral for therapy Will discuss medications at next visit Will schedule for pap/mood follow-up Chlamydia 12/12/2024 Overview (12/12/2024): -treated with doxycycline [...] organization. Date Type Department Care Team Description 01/25/2025 Orders Only GENERIC EXTERNAL DATA DEPARTMENT Provider, Generic External Data 01/23/[address] [address] Anila Jones MD Lab Orders 01/21/[address] [address] Anila Jones MD Nurse Triage 01/14/[address] [address] Anila Jones MD NTTS 01/13/2025 9:45 AM EDT Office Visit [address] [address] Anila Jones MD Moderate major depression (CMS/HCC) (Primary Dx); Dietary counseling; Exercise counseling; Seen in diabetes preconception counseling clinic; Encounter for preconception consultation; Anxiety 01/13/2025 Results Follow-Up [address] [address] Katherine Celestin RN TSH W/Reflex to FT4, CBC auto differential, Comprehensive Metabolic Panel 01/13/2025 Travel 01/09/[address] [address] Whitney Cortez MA chart prep 01/06/2025 Travel 12/18/2024 2:00 PM EDT Office Visit [facility] [address] [address] Ngoc Aguilar MD Chlamydia (Primary Dx); Nausea and vomiting, unspecified vomiting type 12/18/2024 Travel 12/11/2024 Results Follow-Up [facility] [address] [address] Iraida Vidal RN Bacterial Vaginosis, Chlamydia/N. Gonorrhoeae RNA, TMA, Urogenitial, POCT urinalysis dipstick manually resulted, Additional followed-up results: 6 12/11/2024 [facility] [address] [address] Alaina Hansen FNP 12/11/[address] [address] Cory Dyosn MD Results 12/10/2024 3:40 PM EDT [facility] [address] [address] Ngoc Aguilar MD Routine screening for STI (sexually transmitted infection) (Primary Dx); Vaginal itching; Family planning; Dysuria 12/10/2024 Travel 11/27/2024 1:40 PM EDT [facility] [address] [address] Ngoc Aguilar MD Left lower quadrant abdominal pain (Primary Dx); History of abnormal cervical Pap smear 11/27/2024 Travel from Last 3 Months Immunizations Immunization Administration [...] with others, in a hotel, in a senior living, living outside on the street, on a [...] Q2 Not on file 01/13/2025 Comments No Intention Date Recorded Wants to become (finding) 01/13 Sex and Gender Information Value Date Recorded [...] 01/13/2025 10:05 AM EDT Plan of Treatment Upcoming Encounters Date Type Department Care Team (Late st Contact Info) Description 03/10/2025 9:00 AM EDT Office Visit [facility] [address] [place] [address] Anila Jones MD [address] [place] [address] Health Maintenance Due Date Last Done Comments HPV Vaccines (1 - 3-dose series) 2015 Hepatitis B Vaccines (1 of 3 - 19+ 3-dose series) 2019 Pap Smear 2021 COVID-19 Vaccine (2 - 2023-2 5 season) 2024 01/08/2021 Influenza Vaccine (#1) 2025 Disability Screening 01/06/2026 01/06/2025 Alcohol/Substance Use Screening 01/13/2026 01/13/2025 Depression Screening 01/13/2026 01/13/2025, 01/13/2025 SDOH Screening 01/13/2026 01/13/2025 Tobacco Screening 01/13/2026 01/13/2025 Family Planning (PISQ) 01/14/2026 01/14/2025 DTaP/Tdap/Td Vaccines (2 - T d or [...] Procedure Name Priority Date/Time Associated Diagnosis Comments CBC WITH AUTO DIFFERENTIAL Routine 01/25/2025 4:20 PM EDT COMPREHENSIVE METABOLIC PANEL Routine 01/13/2025 11:28 AM EDT Dietary counseling CBC WITH AUTO DIFFERENTIAL Routine 01/13/2025 11:28 AM EDT Dietary counseling TSH W/REFLEX TO FT4 Routine 01/13/2025 1 1:28 AM EDT Dietary counseling POCT , URINE Routine 12/18/2024 1:14 PM [...] EDT History of abnormal cervical Pap smear from Last 3 Months Results * (ABNORMAL) CBC auto differential (01/25/2025 4:20 PM EDT) Only the most recent of2 resultswithin the time period is included. White Blood Count 7.8 4.8 - 10.8 X10*3/uL [facility] Red Blood Count 4.14(L) 4.20 - 5.50 X10*6/uL [facility] Hemoglobin 12.4 12.0 - 16.0 g/dl [facility] Hematocrit 36.5(L) 37.0 - 47.0 % [facility] Mean Corpuscular Volume 88.2 80.0 - 98.0 fL [facility] Mean Corpuscular Hemoglobin 30.0 27.0 - 33.0 pg [facility] Mean Corpuscular HGB Conc 34.0 31.0 - 35.0 g/dl [facility] Red Cell Distribution Width 13.0 11.0 - 16.0 % [facility] Platelet Count 278 160 - 400 X10*3/uL [facility] Mean Platelet Volume 9.5 9.4 - 12.3 fL [facility] Neutrophils Percent Auto 59.9 45 - 73 % [facility] Imm Gran Pct Auto 0.1 0.0 - 0.4 % [facility] Lymphocytes Percent Auto 30.5 20 - 40 % [facility] Monocytes Percent Auto 6.3 2 - 11 % [facility] Eosinophils Percent Auto 2.8 0 - 4 % [facility] Basophils Percent Auto 0.4 0 - 2 % [facility] NRBC Pct Auto 0.0 0.0 - 0.2 /100WBC [facility] Neutrophils Absolute Auto 4.7 2.0 - 8.3 x10*3/uL [facility] Imm Gran Abs Auto 0.01 0.00 - 0.03 X10*3/uL [facility] Lymphocytes Absolute Auto 2.4 1.2 - 4.9 X10*3/uL [facility] Monocytes Absolute Auto 0.5 0.1 - 1.2 X10*3/uL [facility] Eosinophils Absolute Auto 0.2 0.0 - 0.4 X10*3/uL [facility] Basophils Absolute Auto 0.0 0.0 - 0.2 X10*3/uL [facility] NRBC Abs Auto 0.000 0.0 - 0.012 X10*3/uL [facility] 01/25/2025 4:20 PM EDT 01/25/2025 4:23 PM EDT us Generic External Data Provider LAB BLOOD ORDERAB LES Final Result Performing Organization Address City/[facility]/ZIP Co de Phone Number [facility] [address] [place] [address] [phone] * TSH W/Reflex to FT4 (01/13/2025 11:28 AM EDT) TSH reflex Free T4 1.24 0.32 - 4.0 uIU/mL [facility] Blood Venous blood specimen / Unknown 01/13/2025 11:28 AM EDT 01/13/2025 1:01 PM EDT us Anila Jones MD LAB BLOOD ORDERABLES Final Res ult [facility] [address] [place] [address] [phone] * (ABNORMAL) Comprehensive Metabolic Panel (01/13/2025 11:28 AM EDT) Sodium 141 135 - 145 mmol/L [facility] Potassium 3.8 3.3 - 5.1 mmol/L [facility] Chloride 107 96 - 108 mmol/L [facility] Carbon Dioxide 26 22 - 29 mmol/L [facility] Anion Gap 12 12 - 20 [facility] Urea Nitrogen (BUN) 7(L) 9 - 16 mg/dL [facility] Creatinine, Serum 0.67 0.5 - 1.4 mg/dL [facility] Estimated Glomerular Filt Rate >60 [facility] Comment:Chronic Kidney Disea se: Estimated GFR < 60 mL/min/[id number] Kidney Disease: Estimated GFR < 15 mL/min/1.73m2 Glucose 92 60 - 115 mg/dL [facility] Calcium 9.4 8.4 - 10.2 mg/dL [facility] Bilirubin, Total 0.7 0.0 - 1.0 mg/dL [facility] Aspartate Amino Transferase 20 5 - 31 U/L [facility] Alanine Aminotransferase 12 0 - 31 U/L [facility] Total Protein 7.4 6.5 - 8.0 g/dL [facility] Albumin Level 5.1(H) 3.5 - 5.0 g/dL [facility] Alkaline Phosphatase 105 39 - 117 U/L [facility] Blood Venous blood specimen / Unknown 01/13/2025 11:28 AM EDT 01/13/2025 1:01 PM EDT us Anila Jones MD LAB BLOOD ORDERABLES Final Res ult [facility] [address] [place] [address] [phone] * POCT , urine manually resulted (12/18/2024 1:14 PM EDT) Only the most recent of3 resultswithin the time period is included. Preg Test, Ur Negative Negative, Indeterminate, None Detected, Invalid, Specimen unsatisfactory for evaluation, Weakly Positive, 2+ Urine 12/18/2024 1:14 PM EDT Ngco Aguilar MD POINT OF CARE TEST ENTER/E DIT ORDERABLES Final Result * Syphilis Screen (12/10/2024 4:14 PM EDT) [facility] Syphilis Screen Nonreactive Nonreactive [facility] Blood Venous blood specimen / Unknown 12/10/2024 4:14 PM EDT 12/10/2024 6:00 PM EDT Ngoc Aguilar MD LAB BLOOD ORDERABLES Final Result Performing Organization Address [facility]/ZIP Co de Phone Number [facility] [address] [place] [phone] * Hepatitis C Antibody with Reflex to HCV, RNA, Quantitative, Real-Time PCR (12/10/2024 4:14 PM EDT) [facility] Hepatitis C Antibody Nonreactive Nonreactive [facility] Comment:Antibodies to HCV no t detected; does not exclude early acuteHCV infection. Blood Venous blood specimen / Unknown 12/10/2024 4:14 PM EDT 12/10/2024 6:00 PM EDT Ngoc Aguilar MD LAB BLOOD ORDERABLES Final Result Performing Organization Address City/[facility]/ZIP Co de Phone Number [facility] [address] [place] [phone] * HIV-1/2 Antigen and Antibodies, Fourth Generation, with Reflexes (12/10/2024 4:14 PM EDT) [facility] HIV AB/AG Nonreactive Nonreactive [facility] Comment:HIV-1 p24 Ag and/or HIV-1/HIV-2 Ab not detected.A test result that is nonreactive does not exclude thepossibility of exposure to or infection with HIV-1 and/orHIV-2. Nonreactive results in this assay for individualswith prior exposure to HIV-1 and/or HIV-2 may be due toantigen and antibody levels that are below the limit ofdetection of this assay.The [employer] HIV Ag/Ab Combo assay result andsupplemental assay results should be interpreted inconjunction with the patient's clinical presentation,history and other laboratory results. If the results areinconsistent with clinical evidence, additional testing issuggested to confirm the result. Blood Venous blood specimen / Unknown 12/10/2024 4:14 PM EDT 12/10/2024 6:00 PM EDT us Ngoc Aguilar MD LAB BLOOD ORDERABLES Final Result [facility] [address] [place] [phone] * hCG, Total, Quantitative (12/10/2024 4:14 PM EDT) HCG Quantitative <2 mIU/mL [facility] Comment:Weeks post LMP Appro ximate hCG(Last Menstrual Period) Range (mIU/ml)3 - 4 weeks 9 - 1304 - 5 weeks 75 - 2,6005 - 6 weeks 850 - 20,8006 - 7 weeks 4000 - 100,2007 - 12 weeks 11,500 - 289,07232 - 16 weeks 18,300 - 137,22983 - 29 weeks (2nd trimester) 1,400 - 53,96420 - 41 weeks (3rd trimester) 940 - [...] Aguilar MD LAB BLOOD ORDERABLES Final Result [facility] [address] [place] [phone] * (ABNORMAL) POCT urinalysis dipstick manually [...] Media Lot # [id number] Lot# Expiration Date Urine 12/10/2024 3:53 PM EDT Ngoc Aguilar MD POINT OF CARE TEST ENTER/E DIT ORDERABLES Final Result * (ABNORMAL) Bacterial Vaginosis (12/10/2024 3:47 PM EDT) TRICHOMONAS VAGINALIS DETECTION BY PCR NOT DETECTED Not Detect [facility] BACTERIAL VAGINOSIS DETECTION BY PCR POSITIVE(A) Negative [facility] Comment:The BV organism targ ets of [...] GROUP DETECTION BY PCR DETECTED(A) Not Detect [facility] Mary glab krusei PCR NOT DETECTED Not Detect [facility] Swab Vaginal structure / Unknown 12/10/2024 3:47 PM EDT 12/10/2024 5:58 PM EDT Ngoc Aguilar MD LAB MICROBIOLOGY - GENERAL ORDERABLES Final Result Performing Organization Address [facility]/ZIP Co de Phone Number [facility] [address] [place] [address] [phone] * Urinalysis, Complete, with Reflex to Culture (12/10/2024 3:47 PM EDT) Color Urine Yellow [facility] Appearance Urine Turbid [facility] PH 6.0 5.0 - 9.0 [facility] Glucose Urine UA Negative Negative mg/dL [facility] Urine Blood Negative Negative [facility] Specific Spring - Urine 1.025 1.005 - 1.025 [facility] Urine Protein Trace Neg-Trace mg/dL [facility] Urine Ketones Trace Negative mg/dL [facility] Nitrite Urine Negative Negative [facility] Leukocyte Esterase Urine Negative Negative [facility] RBC Urine 0-2 0 - 2 /HPF [facility] Urine WBC 0-5 0 - 5 /HPF [facility] Urine Squamous Epithelial Cell 11-20 0 - 2 /HPF [facility] Urine Bacteria 4+ None Seen [facility] Hyaline Casts, Urine 0-2 0 - 2 /LPF [facility] Urine 12/10/2024 3:47 PM EDT 12/10/2024 5:58 PM EDT Narrative [facility] - 12/10/2024 6:29 PM EDT Urine, Clean Catch Ngoc Aguilar MD LAB URINE ORDERABLES Final Result Performing Organization Address City/[facility]/ZIP Co de Phone Number [facility] [address] [place] [address] [phone] * (ABNORMAL) Chlamydia/N. Gonorrhoeae RNA, TMA, Urogenitial (12/10/2024 3:47 PM EDT) CT PCR DETECTED(A) Not Detect. [facility] Comment:Detected results may be observed after [...] the ordering clinician orclinical facility [facility] required by state law. NG PCR NOT DETECTED Not Detect. [facility] Comment:A not detected test result does [...] LAB MICROBIOLOGY - GENERAL ORDERABLES Final Result [facility] [address] [place] [phone] * Culture, Urine, Routine (12/10/2024 3:47 PM EDT) Urine Urine specimen obtained by clean catch procedure / Unknown 12/10/2024 3:47 PM EDT 12/10/2024 5:57 PM EDT Comment:UACC Narrative [facility] - 12/12/2024 12:03 PM EDT Urine Culture Report Result Urine Culture > 100,000 cfu/ml Urine Culture Mixed bacterial sona characteristic of Urine Culture urogenital contamination. Specimen Source: Urine clean catch Ngoc Aguilar MD LAB MICROBIOLOGY - GENERAL ORDERABLES Final Result [facility] [address] [place] [phone] [phone] from Last 3 Months Insurance [facility] C3 Care Teams Review Specialist Relationship Specialty Start Date End Date Anila Jones MD [address] [place] [phone] PCP - General Family Medicine 01/13/25
--- OUTSIDE RECORDS SUMMARY | 2025-01-25 16:26 | XMS_ITS | Clinical Summary ---
Author Organization [facility] Address [address] [place] [address] Care Team Providers Care Hot Metal Car Operator Name Role Phone Radha Alfaro Pcp/Family Primary Care Provider [phone] Allergies Active Allergy Reactions Criticality Noted Date Comments Shellfish Derived Rash Medium 06/24/2018 Medications Medroxyprogestero ne,Contracep, (DEPO-PROVERA) 150 mg/mL SyringeIndication s:Encounter for Depo-Provera contraception 1 mL every 3 months by IntraMUSCULAR route . 1 mL 4 08/15/19 Active Additional Information Patient taking differently:150 mg IntraMUSCULAR EVERY 3 MONTHS,2nd shot 11/18/21, Reason: Other, Reported on 11/18/2021 sulfamethoxazole- trimethoprim (BACTRIM DS) 800-160 mg Tablet take 1 tablet every 12 hours by mouth . 20 tablet 10/22/19 Active Additional Information Patient not taking.Reason: Other, [...] 04/06/2021 08/05/2021 Overview (06/18/2021): OBS patient. Language: Bolivian problems Rh __ / Rub __ / [...] 10/15/18 - iron, folic acid, colace Immunizations Immunization Administration Dates Next Due Tdap (Adacel) (10 years thru 64 years) Family History Medical History Relation Name Comments Diabetes Maternal Grandmother Breast Cancer Neg Hx Relation Name Status Comments Father Maternal Grandmother Mother Social History Tobacco Use Types Packs/Day Years Used Date Smoking Tobacco: Never Smokeless Tobacco: Never Alcohol Use Standard Drinks/Week Comments No 0 (1 standard drink = 0.6 oz pur e alcohol) [place] Depression Scale Answer Date Recorded [place] Depression Scale Total 13 08/05/2021 The thought [...] of 2) 2050 HIV Screening Completed 06/07/2021, 060 12/2020, 10/15/2018, Additional history exists Hepatitis C [...] Chlamydia Trachomatis RNA NOT DETECTED NOT DETECTED [facility] N.Gonorrhoeae RNA NOT DETECTED NOT DETECTED [facility] Note: (Note) The analytical performance characteristics of this assay, when used to test SurePath(TM) specimens have been determined by [facility]. The modifications have not been cleared or approved by the FDA. This assay has been validated pursuant to the CLIA regulations and is used for clinical purposes. For additional information, please refer to https://education. Wortals.c om/faq/BZY040 (This link is being provided for information/ educational purposes only.) Performed by [employer] Carie Leung [employer], [address] [facility], [place] [address], [place] [address] [employer] ENDOCERVICAL 10/21/2021 3:50 PM EDT 10/22/2021 1:07 AM EDT us Shahnaz Hull COUNTERPERSON-C DNA AMP ORDERABLES Final Res ult Performing Organization Address [facility]/ZIP Co de Phone Number [employer] [place], [place] * HPV, HIGH RISK ([id number]) (08/05/2021 1:57 PM EST) Pathologist [facility] HPV DNA, High Risk Not Detected Not Detected [facility] Comment: (Note) Methodology: Senior Art Director-Mediated Amplification This assay detects E6/E7 viral messenger RNA (mRNA) from 14 high-risk HPV types (16,18,31,33,35,39,45,51,52,56,58,59,66,68). The analytical performance characteristics of this assay have been determined by [facility]. The modifications have not been cleared or approved by the FDA. This assay has been validated pursuant to the CLIA regulations and is used for clinical purposes. For additional information, please refer to http://education.DuXplore/faq/HBU374h4 (This link if provided for information/ educational purposes only.) Case Number [id number] [facility] Part (Source) Cervical/Endoc ervical ThinPrep Pap with imaging, low risk Lab studies performed by: [facility] located at [facility], [address] [place] [address]. [place] [address] [facility] 08/05/2021 1:57 PM EST 08/10/2021 9:13 PM EST Shahnaz Reich NP-C MICROBIOLOGY - GENERAL ORDER RICHIE Final Result Performing Organization Address [facility]/ZIP Co de Phone Number [employer] [place], [place] * HIV-1/2 AG/AB, 4TH GEN,W/REFLEXES ([id number]) (06/07/2021 2:45 PM EST) Pathologist [facility] HIV Ag/Ab, 4th Generation SEE NOTE NON-REACT [facility] [employer] Comment: (Note) Result: NON-REACTIVE HIV-1 antigen and [...] purpose. For additional information please refer to http://education.SkillSurvey.SIPX/faq/UUH161 (This link is being provided for informational/ educational purposes only.) The performance of this assay has not been clinically validated in patients less than 2 years old. Performed by [facility], [address] [place] [address], [address], [facility] [address] 06/07/2021 2:45 PM EST 06/07/2021 9:29 PM EST Shahnaz Reich NP-C LAB SEND OUTS Final Result Performing Organization Address [facility] Co de Phone Number [facility] [place], [place] * HEPATITIS C ANTIBODY REFLEX(HCREF) (06/07/2021 2:45 PM EST) [facility] Hepatitis C Ab Screen Neg Neg [facility] HCV AB Sample/[place] Ratio 0.02 0.00 - 0.79 [facility] Comment: Neg (Note) Confirmatory testing by PCR will be performed as recommended by the CDC for all Reactive Screen or Equivocal results. Lab studies performed by: [facility] located at [facility], [address] [place] [phone] Blood, Venous 06/07/2021 2:4 5 PM EST 06/07/2021 9:29 PM EST Shahnaz Reich COUNTERPERSON-C CHEMISTRY ORDERABLES Final R esult Performing Organization Address City/[facility] Co de Phone Number [place], [place] from Last 3 Months or Most Recently Relevant to Health Maintenance Insurance [employer] Advance Directives For more information, please contact: [phone] * Full Code (Latest Code Status on File) Date Activated Date Inactivated Comments 06/24/2021 10:50 AM 06/25/2021 7:56 PM * Full Code Date Activated Date Inactivated Comments 06/24/2021 10:17 AM 06/24/2021 10:50 AM * Full Code Date Activated Date Inactivated Comments 06/24/2021 4:06 AM 06/24/2021 10:17 AM Care Teams Hot Metal Car Operator Relationship Specialty Start Date End Date , Radha Pcp/Family [address] [place] [address] PCP - General Family Medicine 07/09/18
[2025-01-25 16:47] LABS: Alanine Aminotransferase 13 U/L (0-31); Albumin Level 4.7 g/dL (3.5-5.0); Alkaline Phosphatase 132 U/L (39-117); Anion Gap 12 (12-20); Aspartate Amino Transferase 19 U/L (5-31); Blood Urea Nitrogen 12 mg/dL (9-16); Calcium 9.3 mg/dL (8.4-10.2); Carbon Dioxide 27 mmol/L (22-29); Chloride 104 mmol/L (96-108); Creatinine Clr Calc Pharmacy 129.6; Estimated Glomerular Filt Rate > 60; Magnesium 1.8 mg/dL (1.6-2.6); Potassium 4.0 mmol/L (3.3-5.1); Sodium 139 mmol/L (135-145); Total Protein 7.3 g/dL (6.5-8.0)
[2025-01-25 18:11] VITALS: BP 127/61; PULSE 81; RESP 18; TEMP 37.1; O2SAT 97
== END 2025-01-25 18:12 | disposition home or self-care (01) ==
PROVIDERS: Physician Assistant Medical; Emergency Provider Emergency Medicine Emergency Medical Services; PCP General Practice
DX: R11.2 Nausea with vomiting, unspecified (principal); R10.2 Pelvic and perineal pain
CPT/HCPCS: 36415; 80053; 83735; 84702; 85025; 99282; 99283